=== PATIENT | female | born 1935 | race Caucasian/White ===

== ENCOUNTER 2017-02-01 16:28 | Emergency (ER) | payer MEDICARE ==
[2017-02-01] MEDS ORDERED: Morphine Sulfate 2 MG/ML SYRINGE ONE (17:03)
--- NOTE | 2017-02-01 19:33 | RAD ---
LEFT HUMERUS 02/01/17 Two views show a fracture of the surgical neck of the humerus. There is minimal displacement of the fracture. There is no dislocation of the humeral head. It is somewhat difficult for me to assess whe ther the lesser tubercle was involved medially or not. Dedicated shoulder films might be useful and/ or an MRI or CT. The adjacent AC joint shows no widening. IMPRESSION: Fracture of the surgical neck of the humerus. POS: HOME
--- NOTE | 2017-02-01 19:36 | RAD ---
PELVIS 02/01/17 A single view shows no obvious pelvic fracture. The hips appear intact and symmetrical. The pubic ri ngs appear intact and the symphysis shows no widening or off-set. There might have been some old tra araceli to the left pubic body. The SI joints are symmetrical. The hip joint spaces are equal in width. Arterial calcifications are evident. IMPRESSION: No acute findings. POS: HOME
--- NOTE | 2017-02-01 19:38 | RAD ---
PORTABLE CHEST 02/01/17 An AP portable film at 1657 is compared with an 04/20/16 study. Mild cardiomegaly is about the same a s before. There are no congestive changes or pleural effusions. No focal pulmonary infiltrates are s een. Calcification is seen in the aorta. The trachea is midline given the obliquity of the patient. The fracture of the left humeral neck is noted and is discussed more on other studies. No gross frac tures were seen. There is no mediastinal widening. IMPRESSION: Mild cardiomegaly and arterial sclerosis with no particular change since the [address] [facility]. POS: HOME
== END 2017-02-01 18:15 | disposition home or self-care (01) ==
LOC: BURERS 16:28
DX: S42.212A Unspecified displaced fracture of surgical neck of left humerus, initial encounter for closed fracture (principal); E11.9 Type 2 diabetes mellitus without complications; E78.5 Hyperlipidemia, unspecified; I10 Essential (primary) hypertension; Z86.73 Personal history of transient ischemic attack (TIA), and cerebral infarction without residual deficits; Z79.01 Long term (current) use of anticoagulants; Z79.899 Other long term (current) drug therapy; V89.2XXA Person injured in unspecified motor-vehicle accident, traffic, initial encounter
CPT/HCPCS: 71010; 72170; 93005; 96372; J2270

== ENCOUNTER 2017-02-13 14:05 | Outpatient (CLI) | payer MEDICARE ==
--- NOTE | 2017-02-13 21:46 | RAD ---
LEFT HIP TWO VIEWS: Date: 02-13-17 Comparison: Pelvis film of 02-01-17. FINDINGS: There is no clear indication of fracture. On one view there was a hint of irregularity of the superi or pubic ramus, but I could not definitely confirm a fracture here. Given the patient's osteopenia, one would probably need to do a CT to remove all doubts to exclude an occult superior ramus fracture . The proximal femur itself appears intact. I see nothing involving the inferior pubic ramus that wa s really suspicious. IMPRESSION: No definite fracture, however, on one view there was minimal cortical disturbance along the superior pubic ramus. If further studies are deemed necessary based on the symptoms, a CT would be preferred to remove any doubt. Code T POS: HOME
== END 2017-02-13 14:06 | disposition home or self-care (01) ==
LOC: BURRAD 14:05
PROVIDERS: ATTEND Family Medicine
DX: M25.552 Pain in left hip (principal)

== ENCOUNTER 2017-02-14 09:44 | Outpatient (CLI) | payer MEDICARE ==
--- NOTE | 2017-02-14 14:07 | CT ---
CT PELVIS WITHOUT CONTRAST 02/14/2017 HISTORY: A noncontrast CT was done due to questionable abnormalities on a recent plain film around the left h ip. Axial slices were acquired and then coronal and sagittal reconstructions were obtained. FINDINGS: The patient is very osteoporotic, making it difficult to see well. While the findings are subtle on the axial slices of the CT, there is a subtle nondisplaced fracture of the superior ramus of the le ft pubis, medially. There is no displacement. I could not appreciate fractures in any other surrou nding portions of the pelvis. The hips both appear intact. There is no sign of hematoma in the pel vis, pelvic masses, or fluid collection. IMPRESSION: Subtle, nondisplaced fracture of the superior ramus of the left pubis. Findings called to Dr. Guevara at 11:20 on 02/14/2017. CODE CR POS: HOME
== END 2017-02-14 09:45 | disposition home or self-care (01) ==
LOC: BURCT 09:44
PROVIDERS: ATTEND Family Medicine
DX: R93.8 Abnormal findings on diagnostic imaging of other specified body structures (principal); S32.512A Fracture of superior rim of left pubis, initial encounter for closed fracture
CPT/HCPCS: 72192

== ENCOUNTER 2017-03-15 09:55 | Outpatient (CLI) | payer MEDICARE ==
--- NOTE | 2017-03-15 19:53 | RAD ---
LEFT HUMERUS TWO VIEWS: 03/15/17 Comparison with last month's study shows callus forming around the humeral neck fracture. There is no adverse change in alignment. There is no dislocation of the humeral head. IMPRESSION: Healing humeral neck fracture. POS: HOME
== END 2017-03-15 09:56 | disposition home or self-care (01) ==
LOC: BURRAD 09:55
PROVIDERS: ATTEND Family Medicine
DX: Z09 Encounter for follow-up examination after completed treatment for conditions other than malignant neoplasm (principal); S42.212D Unspecified displaced fracture of surgical neck of left humerus, subsequent encounter for fracture with routine healing

== ENCOUNTER 2017-10-17 09:57 | Emergency (ER) | payer MEDICARE ==
[2017-10-17 10:41] LABS: #Basophils 0.1 thou/uL (0.0-0.2); #Eosinphils 0.3 thou/uL (0.0-0.7); #Lymphocytes 1.7 thou/uL (1.20-3.40); #Monocytes 0.5 thou/uL (0.11-0.59); #Neutrophils 2.7 thou/uL (1.40-6.50); %Basophils 1.3 % (0.0-1.0); %Eosinophils 5.2 % (0.0-10.0); %Lymphocytes 33.1 % (21.0-51.0); %Monocytes 9.8 % (0.0-10.0); %Neutrophils 50.6 % (42.0-75.0); Hemoglobin 11.9 g/dL (12.0-16.0); Mean Corpuscular HGB CONC 34.3 g/dL (32.0-36.0); Mean Corpuscular Hemoglobin 34.8 pg (27.0-31.0); Mean Platelet Volume 6.5 fL (7.4-10.4); Platelet Count 178 thou/uL (130-400); RBC Distribution Width 12.7 % (11.5-14.5); Red Blood Cell (RBC) Count 3.41 mill/uL (4.20-5.40); White Blood Cell (WBC) Count 5.3 thou/uL (4.8-10.8)
[2017-10-17 10:43] LABS: INR-International Normal Ratio 3.1; PTT 44.2 SEC (22.9-36.1); Prothrombin Time 33.2 SEC (12.0-14.7)
[2017-10-17 10:52] LABS: ALT (SGPT) 14 U/L (8-55); AST (SGOT) 19 U/L (5-34); Albumin 3.7 g/dL (3.4-4.8); Alkaline Phosphatase 51 U/L (40-150); Anion Gap 13 mmol/L (10-20); BUN (Urea Nitrogen) 16 mg/dL (9.8-20.1); Bilirubin, Total 0.5 mg/dL (0.2-1.2); Calc. Creatinine Clearance 0 mL/min (70-130); Calcium 9.3 mg/dL (7.8-10.44); Carbon Dioxide 27 mmol/L (23-31); Chloride 105 mmol/L (98-107); Estimated GFR-MDRD 62; Globulin 3.2 g/dL (2.4-3.5); Glucose 107 mg/dL (83-110); Protein, Total 6.9 g/dL (6.0-8.3); Sodium 141 mmol/L (136-145)
[2017-10-17 10:53] LABS: CKMB 1.2 ng/mL (0-6.6); Troponin I Less than 0.010 ng/mL (< 0.028)
[2017-10-17 11:02] LABS: MDiff Complete? YES; Macrocytosis SLIGHT = 6-15 cells (100X) (0-5/hpf); PLT Morphology Comment Appears Adequate
== END 2017-10-17 11:57 | disposition home or self-care (01) ==
LOC: BURERS 09:57
DX: R00.1 Bradycardia, unspecified (principal); E11.9 Type 2 diabetes mellitus without complications; E78.5 Hyperlipidemia, unspecified; I10 Essential (primary) hypertension; Z86.73 Personal history of transient ischemic attack (TIA), and cerebral infarction without residual deficits; Z79.891 Long term (current) use of opiate analgesic; Z79.899 Other long term (current) drug therapy
CPT/HCPCS: 36415; 80053; 82553; 83880; 84443; 84484; 85025; 85610; 85730; 93005

== ENCOUNTER 2018-04-07 16:18 | Emergency (ER) | payer MEDICARE ==
[2018-04-07 16:59] LABS: Clarity SLIGHTLY (Clear)
[2018-04-07 17:01] LABS: Bilirubin Small (Negative); Glucose, Urine (Dipstick) Negative (Negative); Leukocyte Negative (Negative); Nitrite Negative (Negative); Protein, Urine (Dipstick) Trace mg/dL (Neg-Trace); pH, Urine 5.5 (5.0-9.0)
[2018-04-07 17:02] LABS: Blood, Urine Negative (Negative)
[2018-04-07 17:36] LABS: INR-International Normal Ratio 3.6
--- NOTE | 2018-04-07 17:38 | CT ---
CT OF THE LUMBAR SPINE WITHOUT CONTRAST: 04/07/18 INDICATION: History of back pain since Monday. COMPARISON: CT of the abdomen and pelvis dated 04/20/[address] of the pelvis dated 02/14/17. FINDINGS: There is an age indeterminate mild superior end plate wedge compression abnormality of L2 which is ne w from the comparison in 2016. There is diffuse osteopenia. There is moderate degenerative changes of both SI joints. No additional acute fracture is evident. Vascular calcifications seen within the re troperitoneum. No enlarged lymph nodes are evident. IMPRESSION: 1. Age indeterminate mild superior end plate compression fracture at L2. This is new from compar [facility] in 2016. 2. Diffuse osteopenia. 3. Grade I anterolisthesis of L5 on S1 is likely degenerative in nature. 4. Other chronic findings. POS: [facility]
[2018-04-07 17:43] LABS: #Basophils 0.1 thou/uL (0.0-0.2); #Eosinphils 0.1 thou/uL (0.0-0.7); #Lymphocytes 1.7 thou/uL (1.20-3.40); #Monocytes 0.4 thou/uL (0.11-0.59); #Neutrophils 3.4 thou/uL (1.40-6.50); %Basophils 1.1 % (0.0-1.0); %Eosinophils 2.6 % (0.0-10.0); %Lymphocytes 29.5 % (21.0-51.0); %Monocytes 7.7 % (0.0-10.0); %Neutrophils 59.2 % (42.0-75.0); Hemoglobin 10.6 g/dL (12.0-16.0); MDiff Complete? YES; Macrocytosis SLIGHT = 6-15 cells (100X) (0-5/hpf); Mean Corpuscular HGB CONC 34.2 g/dL (32.0-36.0); Mean Corpuscular Hemoglobin 35.3 pg (27.0-31.0); Mean Platelet Volume 7.4 fL (7.4-10.4); Platelet Count 177 thou/uL (130-400); RBC Distribution Width 13.3 % (11.5-14.5); White Blood Cell (WBC) Count 5.7 thou/uL (4.8-10.8)
== END 2018-04-07 18:21 | disposition short-term general hospital (02) ==
LOC: BURERS 16:18
DX: M54.5 Low back pain (principal); R70.0 Elevated erythrocyte sedimentation rate; E11.9 Type 2 diabetes mellitus without complications; E78.5 Hyperlipidemia, unspecified; I10 Essential (primary) hypertension; Z86.73 Personal history of transient ischemic attack (TIA), and cerebral infarction without residual deficits; Z87.442 Personal history of urinary calculi; Z79.01 Long term (current) use of anticoagulants; Z79.899 Other long term (current) drug therapy
CPT/HCPCS: 51701; 72131; 81003; 85025; 85610; 85652; A4353

== ENCOUNTER 2018-04-10 17:52 | Inpatient (IN) | payer MEDICARE ==
[2018-04-10] MEDS ORDERED: Ondansetron PF 4 MG/2 ML Vial IVP PRN (20:39)
[2018-04-10] MEDS ORDERED: Ondansetron ODT 4 MG TAB SL PRN (20:39)
[2018-04-11] MEDS ORDERED: Morphine 4 MG/ML VIAL ONE (02:27)
[2018-04-11] MEDS ORDERED: Loperamide HCl 2 MG CAP PO PRN (08:18)
[2018-04-11] MEDS ORDERED: HumaLOG 300 UNITS/3 ML VIAL SC PRN ×2 (08:19)
[2018-04-11] MEDS ORDERED: Dextrose 50% Abboject 50 ML SYRINGE SLOW IVP PRN (08:19)
[2018-04-11] MEDS ORDERED: Dextrose 5% in Water 1,000 ML IV PRN (08:19)
[2018-04-11] MEDS ORDERED: Meclizine HCl 25 MG TAB PO PRN (08:19)
[2018-04-11] MEDS ORDERED: cloNIDine 0.1 MG TAB PO PRN (08:21)
[2018-04-11] MEDS ORDERED: Bisacodyl 10 MG SUPP PR PRN (08:21)
[2018-04-11] MEDS ORDERED: Ondansetron ODT 4 MG TAB PO PRN (08:21)
[2018-04-11] MEDS ORDERED: Milk Of Magnesia 30 ML UDCUP PO PRN (08:21)
[2018-04-11] MEDS ORDERED: Famotidine 20 MG TAB PO PRN (08:21)
[2018-04-11] MEDS ORDERED: Calcitonin,Salmon,Synthetic 200 Units 3.7 ML PUMP L NARE SCH ×2 (08:30→10:15)
[2018-04-11] MEDS: Pioglitazone HCl 15 MG TAB PO SCH (09:32)
[2018-04-11] MEDS: Lisinopril 10 MG TAB PO SCH (09:32)
[2018-04-11] MEDS: Amlodipine 5 MG TAB PO SCH (09:33)
[2018-04-11] MEDS: Famotidine 20 MG TAB PO SCH ×2 (09:34→21:25)
[2018-04-11] MEDS: Docusate 100 MG CAP PO SCH ×2 (09:34→21:26)
[2018-04-11] MEDS: metFORMIN 500 MG TAB PO SCH (09:35)
[2018-04-11] MEDS: Calcitonin,Salmon,Synthetic 200 Units 3.7 ML PUMP R NARE SCH (09:38)
[2018-04-11] MEDS ORDERED: WARFARIN PO PRN (10:15)
[2018-04-11 13:48] LABS: INR-International Normal Ratio 1.2
[2018-04-11] MEDS: 4 PO SCH (17:18)
[2018-04-11] MEDS: Atorvastatin Calcium 10 MG TAB PO SCH (21:26)
[2018-04-11] MEDS: traMADol HCl 50 MG TAB PO PRN (23:25)
[2018-04-12 04:29] VITALS: BMI 30.2
[2018-04-12 05:33] LABS: INR-International Normal Ratio 1.2; Prothrombin Time 15.5 SEC (12.0-14.7)
[2018-04-12] MEDS: Calcitonin,Salmon,Synthetic 200 Units 3.7 ML PUMP L NARE SCH (08:54)
[2018-04-12] MEDS: Docusate 100 MG CAP PO SCH ×2 (08:55→20:45)
[2018-04-12] MEDS: Amlodipine 5 MG TAB PO SCH (08:56)
[2018-04-12] MEDS: Lisinopril 10 MG TAB PO SCH (08:56)
[2018-04-12] MEDS: Pioglitazone HCl 15 MG TAB PO SCH (08:56)
[2018-04-12] MEDS: metFORMIN 500 MG TAB PO SCH (08:56)
[2018-04-12] MEDS: Famotidine 20 MG TAB PO SCH ×2 (08:56→20:45)
[2018-04-12] MEDS: traMADol HCl 50 MG TAB PO PRN (15:07)
[2018-04-12] MEDS: 4 PO SCH (16:46)
[2018-04-12] MEDS: Atorvastatin Calcium 10 MG TAB PO SCH (20:45)
[2018-04-12] MEDS: Acetaminophen 325 MG TAB PO PRN (22:25)
[2018-04-13] MEDS: traMADol HCl 50 MG TAB PO PRN (05:07)
[2018-04-13 05:34] LABS: INR-International Normal Ratio 1.2; Prothrombin Time 15.4 SEC (12.0-14.7)
[2018-04-13] MEDS: Calcitonin,Salmon,Synthetic 200 Units 3.7 ML PUMP R NARE SCH (08:26)
[2018-04-13] MEDS: metFORMIN 500 MG TAB PO SCH (08:26)
[2018-04-13] MEDS: Lisinopril 10 MG TAB PO SCH (08:27)
[2018-04-13] MEDS: Famotidine 20 MG TAB PO SCH ×2 (08:27→20:05)
[2018-04-13] MEDS: Docusate 100 MG CAP PO SCH ×2 (08:28→20:05)
[2018-04-13] MEDS: Pioglitazone HCl 15 MG TAB PO SCH (08:28)
[2018-04-13] MEDS: Amlodipine 5 MG TAB PO SCH (08:29)
[2018-04-13] MEDS: Warfarin Sodium 5 MG TAB PO SCH (17:21)
[2018-04-13] MEDS: Acetaminophen 325 MG TAB PO PRN (20:05)
[2018-04-13] MEDS: Atorvastatin Calcium 10 MG TAB PO SCH (20:05)
[2018-04-14 05:56] LABS: INR-International Normal Ratio 1.6; Prothrombin Time 18.8 SEC (12.0-14.7)
[2018-04-14] MEDS: traMADol HCl 50 MG TAB PO PRN ×2 (06:17→16:45)
[2018-04-14] MEDS: Famotidine 20 MG TAB PO SCH ×2 (08:44→20:40)
[2018-04-14] MEDS: Docusate 100 MG CAP PO SCH ×2 (08:44→20:40)
[2018-04-14] MEDS: metFORMIN 500 MG TAB PO SCH (08:44)
[2018-04-14] MEDS: Pioglitazone HCl 15 MG TAB PO SCH (08:44)
[2018-04-14] MEDS: Amlodipine 5 MG TAB PO SCH (08:46)
[2018-04-14] MEDS: Lisinopril 10 MG TAB PO SCH (08:48)
[2018-04-14] MEDS: Calcitonin,Salmon,Synthetic 200 Units 3.7 ML PUMP L NARE SCH (08:50)
[2018-04-14] MEDS: Warfarin Sodium 5 MG TAB PO SCH (17:12)
[2018-04-14] MEDS: Atorvastatin Calcium 10 MG TAB PO SCH (20:40)
[2018-04-14] MEDS: Acetaminophen 325 MG TAB PO PRN (20:40)
[2018-04-15] MEDS: traMADol HCl 50 MG TAB PO PRN ×2 (04:23→22:50)
[2018-04-15 05:28] LABS: INR-International Normal Ratio 1.9
[2018-04-15] MEDS: Famotidine 20 MG TAB PO SCH ×2 (08:24→20:30)
[2018-04-15] MEDS: Docusate 100 MG CAP PO SCH ×3 (08:24→20:33)
[2018-04-15] MEDS: metFORMIN 500 MG TAB PO SCH (08:25)
[2018-04-15] MEDS: Amlodipine 5 MG TAB PO SCH (08:25)
[2018-04-15] MEDS: Lisinopril 20 MG TAB PO SCH (08:25)
[2018-04-15] MEDS: Pioglitazone HCl 15 MG TAB PO SCH (08:26)
[2018-04-15] MEDS: Calcitonin,Salmon,Synthetic 200 Units 3.7 ML PUMP R NARE SCH (08:27)
[2018-04-15] MEDS: Warfarin Sodium 5 MG TAB PO SCH (17:28)
[2018-04-15] MEDS: Acetaminophen 325 MG TAB PO PRN (20:29)
[2018-04-15] MEDS: Atorvastatin Calcium 10 MG TAB PO SCH (20:30)
[2018-04-15] MEDS ORDERED: Lidocaine 1% w/Epinephrine 1:100K 30 ML VIAL ONE (20:44)
[2018-04-16 05:27] LABS: INR-International Normal Ratio 2.1; Prothrombin Time 23.8 SEC (12.0-14.7)
[2018-04-16] MEDS: traMADol HCl 50 MG TAB PO PRN ×2 (05:59→13:33)
[2018-04-16] MEDS: Pioglitazone HCl 15 MG TAB PO SCH (08:19)
[2018-04-16] MEDS: Docusate 100 MG CAP PO SCH ×2 (08:20→20:39)
[2018-04-16] MEDS: metFORMIN 500 MG TAB PO SCH (08:20)
[2018-04-16] MEDS: Famotidine 20 MG TAB PO SCH ×2 (08:20→20:39)
[2018-04-16] MEDS: Lisinopril 20 MG TAB PO SCH (08:20)
[2018-04-16] MEDS: Amlodipine 5 MG TAB PO SCH (08:20)
[2018-04-16] MEDS: Calcitonin,Salmon,Synthetic 200 Units 3.7 ML PUMP L NARE SCH (08:22)
[2018-04-16] MEDS: Warfarin Sodium 5 MG TAB PO SCH (17:12)
[2018-04-16] MEDS: Atorvastatin Calcium 10 MG TAB PO SCH (20:39)
[2018-04-16] MEDS: Acetaminophen 325 MG TAB PO PRN (20:40)
[2018-04-17] MEDS: traMADol HCl 50 MG TAB PO PRN (04:04)
[2018-04-17 05:22] LABS: INR-International Normal Ratio 2.4; Prothrombin Time 25.8 SEC (12.0-14.7)
[2018-04-17] MEDS: Famotidine 20 MG TAB PO SCH ×2 (08:08→20:11)
[2018-04-17] MEDS: Amlodipine 5 MG TAB PO SCH (08:09)
[2018-04-17] MEDS: Pioglitazone HCl 15 MG TAB PO SCH (08:09)
[2018-04-17] MEDS: metFORMIN 500 MG TAB PO SCH (08:09)
[2018-04-17] MEDS: Docusate 100 MG CAP PO SCH ×2 (08:09→20:11)
[2018-04-17] MEDS: Calcitonin,Salmon,Synthetic 200 Units 3.7 ML PUMP R NARE SCH (08:11)
[2018-04-17] MEDS: Lisinopril 20 MG TAB PO SCH (08:11)
[2018-04-17] MEDS ORDERED: Iopamidol 370 76% 100 ML VIAL ONE ×2 (09:00)
[2018-04-17] MEDS: Warfarin Sodium 5 MG TAB PO SCH (17:53)
[2018-04-17] MEDS: Atorvastatin Calcium 10 MG TAB PO SCH (20:11)
[2018-04-17] MEDS: Acetaminophen 325 MG TAB PO PRN (22:12)
[2018-04-18] MEDS: traMADol HCl 50 MG TAB PO PRN (04:59)
[2018-04-18 06:11] LABS: INR-International Normal Ratio 2.7; Prothrombin Time 28.5 SEC (12.0-14.7)
[2018-04-18] MEDS: Lisinopril 20 MG TAB PO SCH (08:31)
[2018-04-18] MEDS: Pioglitazone HCl 15 MG TAB PO SCH (08:32)
[2018-04-18] MEDS: metFORMIN 500 MG TAB PO SCH (08:32)
[2018-04-18] MEDS: Docusate 100 MG CAP PO SCH ×2 (08:32→20:18)
[2018-04-18] MEDS: Famotidine 20 MG TAB PO SCH ×2 (08:33→20:18)
[2018-04-18] MEDS: Amlodipine 5 MG TAB PO SCH (08:33)
[2018-04-18] MEDS: Calcitonin,Salmon,Synthetic 200 Units 3.7 ML PUMP L NARE SCH (08:35)
[2018-04-18] MEDS: Warfarin Sodium 5 MG TAB PO SCH (16:48)
[2018-04-18] MEDS: Acetaminophen 325 MG TAB PO PRN (20:18)
[2018-04-18] MEDS: Atorvastatin Calcium 10 MG TAB PO SCH (20:18)
[2018-04-19] MEDS: traMADol HCl 50 MG TAB PO PRN (05:19)
[2018-04-19 05:42] LABS: INR-International Normal Ratio 2.8; Prothrombin Time 29.1 SEC (12.0-14.7)
[2018-04-19] MEDS: Famotidine 20 MG TAB PO SCH ×2 (08:37→20:30)
[2018-04-19] MEDS: Pioglitazone HCl 15 MG TAB PO SCH (08:37)
[2018-04-19] MEDS: Amlodipine 5 MG TAB PO SCH (08:37)
[2018-04-19] MEDS: metFORMIN 500 MG TAB PO SCH (08:38)
[2018-04-19] MEDS: Hydrochlorothiazide 25 MG TAB PO SCH (08:38)
[2018-04-19] MEDS: Lisinopril 20 MG TAB PO SCH (08:38)
[2018-04-19] MEDS: Docusate 100 MG CAP PO SCH ×2 (08:39→20:31)
[2018-04-19] MEDS: Calcitonin,Salmon,Synthetic 200 Units 3.7 ML PUMP R NARE SCH (08:44)
[2018-04-19] MEDS: Warfarin Sodium 5 MG TAB PO SCH (17:50)
[2018-04-19] MEDS: Atorvastatin Calcium 10 MG TAB PO SCH (20:32)
[2018-04-19] MEDS: Acetaminophen 325 MG TAB PO PRN (20:32)
[2018-04-20 05:18] LABS: INR-International Normal Ratio 3.5; Prothrombin Time 35.1 SEC (12.0-14.7)
[2018-04-20] MEDS: traMADol HCl 50 MG TAB PO PRN (07:28)
[2018-04-20] MEDS: Amlodipine 5 MG TAB PO SCH (08:20)
[2018-04-20] MEDS: Pioglitazone HCl 15 MG TAB PO SCH (08:21)
[2018-04-20] MEDS: Lisinopril 20 MG TAB PO SCH (08:21)
[2018-04-20] MEDS: Famotidine 20 MG TAB PO SCH ×2 (08:21→19:58)
[2018-04-20] MEDS: metFORMIN 500 MG TAB PO SCH (08:21)
[2018-04-20] MEDS: Docusate 100 MG CAP PO SCH ×2 (08:21→19:58)
[2018-04-20] MEDS: Hydrochlorothiazide 25 MG TAB PO SCH (08:22)
[2018-04-20] MEDS: Calcitonin,Salmon,Synthetic 200 Units 3.7 ML PUMP L NARE SCH (08:23)
[2018-04-20] MEDS: Acetaminophen 325 MG TAB PO PRN (19:57)
[2018-04-20] MEDS: Atorvastatin Calcium 10 MG TAB PO SCH (19:58)
[2018-04-21 05:18] LABS: INR-International Normal Ratio 2.9; Prothrombin Time 30.1 SEC (12.0-14.7)
[2018-04-21] MEDS: traMADol HCl 50 MG TAB PO PRN (05:33)
[2018-04-21] MEDS: Hydrochlorothiazide 25 MG TAB PO SCH (08:19)
[2018-04-21] MEDS: Docusate 100 MG CAP PO SCH ×2 (08:19→20:04)
[2018-04-21] MEDS: Lisinopril 20 MG TAB PO SCH (08:20)
[2018-04-21] MEDS: Pioglitazone HCl 15 MG TAB PO SCH (08:20)
[2018-04-21] MEDS: Famotidine 20 MG TAB PO SCH ×2 (08:20→20:05)
[2018-04-21] MEDS: metFORMIN 500 MG TAB PO SCH (08:20)
[2018-04-21] MEDS: Amlodipine 5 MG TAB PO SCH (08:22)
[2018-04-21] MEDS: Calcitonin,Salmon,Synthetic 200 Units 3.7 ML PUMP R NARE SCH (08:23)
[2018-04-21] MEDS: Warfarin Sodium 2 MG TAB PO SCH (17:28)
[2018-04-21] MEDS: Atorvastatin Calcium 10 MG TAB PO SCH (20:04)
[2018-04-21] MEDS: Acetaminophen 325 MG TAB PO PRN (20:05)
[2018-04-22] MEDS: traMADol HCl 50 MG TAB PO PRN (05:56)
[2018-04-22 06:02] LABS: INR-International Normal Ratio 2.4; Prothrombin Time 26.4 SEC (12.0-14.7)
[2018-04-22] MEDS: Amlodipine 5 MG TAB PO SCH (08:35)
[2018-04-22] MEDS: Calcitonin,Salmon,Synthetic 200 Units 3.7 ML PUMP L NARE SCH (08:35)
[2018-04-22] MEDS: Docusate 100 MG CAP PO SCH ×2 (08:35→20:08)
[2018-04-22] MEDS: Lisinopril 20 MG TAB PO SCH (08:36)
[2018-04-22] MEDS: Hydrochlorothiazide 25 MG TAB PO SCH (08:36)
[2018-04-22] MEDS: metFORMIN 500 MG TAB PO SCH (08:36)
[2018-04-22] MEDS: Famotidine 20 MG TAB PO SCH ×2 (08:36→20:08)
[2018-04-22] MEDS: Pioglitazone HCl 15 MG TAB PO SCH (08:36)
[2018-04-22] MEDS: Warfarin Sodium 2 MG TAB PO SCH (17:54)
[2018-04-22] MEDS: Atorvastatin Calcium 10 MG TAB PO SCH (20:08)
[2018-04-22] MEDS: Acetaminophen 325 MG TAB PO PRN (20:08)
[2018-04-23 05:00] LABS: INR-International Normal Ratio 2.2; Prothrombin Time 24.2 SEC (12.0-14.7)
[2018-04-23] MEDS: traMADol HCl 50 MG TAB PO PRN ×2 (06:08→17:34)
[2018-04-23] MEDS: Lisinopril 20 MG TAB PO SCH (08:21)
[2018-04-23] MEDS: Hydrochlorothiazide 25 MG TAB PO SCH (08:21)
[2018-04-23] MEDS: Famotidine 20 MG TAB PO SCH ×2 (08:22→20:11)
[2018-04-23] MEDS: Amlodipine 5 MG TAB PO SCH (08:22)
[2018-04-23] MEDS: Docusate 100 MG CAP PO SCH ×2 (08:22→20:11)
[2018-04-23] MEDS: Pioglitazone HCl 15 MG TAB PO SCH (08:22)
[2018-04-23] MEDS: metFORMIN 500 MG TAB PO SCH (08:22)
[2018-04-23] MEDS: Calcitonin,Salmon,Synthetic 200 Units 3.7 ML PUMP R NARE SCH (08:23)
[2018-04-23] MEDS ORDERED: Warfarin Sodium 5 MG TAB PO SCH (09:25)
[2018-04-23] MEDS: Warfarin Sodium 5 MG TAB PO SCH (17:06)
[2018-04-23] MEDS: Atorvastatin Calcium 10 MG TAB PO SCH (20:11)
[2018-04-24 05:05] LABS: Prothrombin Time 25.6 SEC (12.0-14.7)
[2018-04-24 05:06] LABS: INR-International Normal Ratio 2.3
[2018-04-24] MEDS: traMADol HCl 50 MG TAB PO PRN (05:40)
[2018-04-24] MEDS: metFORMIN 500 MG TAB PO SCH (08:58)
[2018-04-24] MEDS: Famotidine 20 MG TAB PO SCH ×2 (08:58→20:10)
[2018-04-24] MEDS: Docusate 100 MG CAP PO SCH ×2 (08:58→20:10)
[2018-04-24] MEDS: Pioglitazone HCl 15 MG TAB PO SCH (08:58)
[2018-04-24] MEDS: Calcitonin,Salmon,Synthetic 200 Units 3.7 ML PUMP L NARE SCH (08:58)
[2018-04-24] MEDS: Hydrochlorothiazide 25 MG TAB PO SCH (08:59)
[2018-04-24] MEDS: Amlodipine 5 MG TAB PO SCH (08:59)
[2018-04-24] MEDS: Lisinopril 20 MG TAB PO SCH (09:01)
[2018-04-24] MEDS: Warfarin Sodium 5 MG TAB PO SCH (16:56)
[2018-04-24] MEDS: Acetaminophen 325 MG TAB PO PRN (20:10)
[2018-04-24] MEDS: Atorvastatin Calcium 10 MG TAB PO SCH (20:15)
[2018-04-25 06:12] LABS: INR-International Normal Ratio 2.4; Prothrombin Time 26.1 SEC (12.0-14.7)
[2018-04-25] MEDS: traMADol HCl 50 MG TAB PO PRN (06:15)
[2018-04-25] MEDS: Amlodipine 5 MG TAB PO SCH (08:14)
[2018-04-25] MEDS: Pioglitazone HCl 15 MG TAB PO SCH (08:14)
[2018-04-25] MEDS: metFORMIN 500 MG TAB PO SCH (08:15)
[2018-04-25] MEDS: Lisinopril 20 MG TAB PO SCH (08:15)
[2018-04-25] MEDS: Famotidine 20 MG TAB PO SCH ×2 (08:16→20:02)
[2018-04-25] MEDS: Hydrochlorothiazide 25 MG TAB PO SCH (08:16)
[2018-04-25] MEDS: Docusate 100 MG CAP PO SCH ×2 (08:16→20:02)
[2018-04-25] MEDS: Calcitonin,Salmon,Synthetic 200 Units 3.7 ML PUMP R NARE SCH (08:17)
[2018-04-25] MEDS: Warfarin Sodium 5 MG TAB PO SCH (17:09)
[2018-04-25] MEDS: Atorvastatin Calcium 10 MG TAB PO SCH (20:02)
[2018-04-25] MEDS: Acetaminophen 325 MG TAB PO PRN (20:03)
[2018-04-26] MEDS: traMADol HCl 50 MG TAB PO PRN ×2 (06:57→21:44)
[2018-04-26] MEDS: Docusate 100 MG CAP PO SCH ×2 (08:30→19:36)
[2018-04-26] MEDS: Pioglitazone HCl 15 MG TAB PO SCH (08:30)
[2018-04-26] MEDS: Famotidine 20 MG TAB PO SCH ×2 (08:33→19:33)
[2018-04-26] MEDS: Amlodipine 5 MG TAB PO SCH (08:34)
[2018-04-26] MEDS: metFORMIN 500 MG TAB PO SCH (08:34)
[2018-04-26] MEDS: Hydrochlorothiazide 25 MG TAB PO SCH (08:34)
[2018-04-26] MEDS: Lisinopril 20 MG TAB PO SCH (08:34)
[2018-04-26] MEDS: Calcitonin,Salmon,Synthetic 200 Units 3.7 ML PUMP L NARE SCH (08:36)
[2018-04-26] MEDS ORDERED: Warfarin Sodium 2 MG TAB PO SCH (14:02)
[2018-04-26] MEDS: Acetaminophen 325 MG TAB PO PRN ×2 (19:33→23:50)
[2018-04-26] MEDS: Atorvastatin Calcium 10 MG TAB PO SCH (19:35)
[2018-04-27 05:25] LABS: Prothrombin Time 31.3 SEC (12.0-14.7)
[2018-04-27] MEDS: traMADol HCl 50 MG TAB PO PRN (06:34)
[2018-04-27] MEDS: Calcitonin,Salmon,Synthetic 200 Units 3.7 ML PUMP R NARE SCH (07:57)
[2018-04-27] MEDS: Lisinopril 20 MG TAB PO SCH (07:58)
[2018-04-27] MEDS: Pioglitazone HCl 15 MG TAB PO SCH (07:59)
[2018-04-27] MEDS: Famotidine 20 MG TAB PO SCH ×2 (07:59→20:48)
[2018-04-27] MEDS: metFORMIN 500 MG TAB PO SCH (08:00)
[2018-04-27] MEDS: Amlodipine 5 MG TAB PO SCH (08:01)
[2018-04-27] MEDS: Hydrochlorothiazide 25 MG TAB PO SCH (08:02)
[2018-04-27] MEDS: Docusate 100 MG CAP PO SCH ×2 (08:02→20:48)
[2018-04-27] MEDS ORDERED: Warfarin Sodium 2 MG TAB PO SCH (17:00)
[2018-04-27] MEDS: Atorvastatin Calcium 10 MG TAB PO SCH (20:48)
[2018-04-27] MEDS: Acetaminophen 325 MG TAB PO PRN (20:53)
[2018-04-28 05:44] LABS: INR-International Normal Ratio 2.3
[2018-04-28] MEDS: traMADol HCl 50 MG TAB PO PRN (07:11)
[2018-04-28] MEDS: Amlodipine 5 MG TAB PO SCH (09:17)
[2018-04-28] MEDS: Docusate 100 MG CAP PO SCH ×2 (09:17→20:11)
[2018-04-28] MEDS: Hydrochlorothiazide 25 MG TAB PO SCH (09:17)
[2018-04-28] MEDS: Pioglitazone HCl 15 MG TAB PO SCH (09:18)
[2018-04-28] MEDS: Calcitonin,Salmon,Synthetic 200 Units 3.7 ML PUMP L NARE SCH (09:18)
[2018-04-28] MEDS: Famotidine 20 MG TAB PO SCH ×2 (09:18→20:11)
[2018-04-28] MEDS: Lisinopril 20 MG TAB PO SCH (09:18)
[2018-04-28] MEDS: metFORMIN 500 MG TAB PO SCH (09:18)
[2018-04-28] MEDS: Acetaminophen 325 MG TAB PO PRN ×2 (12:20→19:14)
[2018-04-28] MEDS ORDERED: Warfarin Sodium 2 MG TAB PO SCH (17:00)
[2018-04-28] MEDS: Atorvastatin Calcium 10 MG TAB PO SCH (20:11)
[2018-04-29 05:24] LABS: INR-International Normal Ratio 1.6; Prothrombin Time 19.5 SEC (12.0-14.7)
[2018-04-29] MEDS: traMADol HCl 50 MG TAB PO PRN (07:11)
[2018-04-29] MEDS: Pioglitazone HCl 15 MG TAB PO SCH (09:32)
[2018-04-29] MEDS: metFORMIN 500 MG TAB PO SCH (09:32)
[2018-04-29] MEDS: Amlodipine 5 MG TAB PO SCH (09:32)
[2018-04-29] MEDS: Docusate 100 MG CAP PO SCH ×2 (09:32→20:47)
[2018-04-29] MEDS: Famotidine 20 MG TAB PO SCH ×2 (09:32→20:47)
[2018-04-29] MEDS: Hydrochlorothiazide 25 MG TAB PO SCH (09:33)
[2018-04-29] MEDS: Lisinopril 20 MG TAB PO SCH (09:33)
[2018-04-29] MEDS: Calcitonin,Salmon,Synthetic 200 Units 3.7 ML PUMP R NARE SCH (09:50)
[2018-04-29] MEDS ORDERED: Warfarin Sodium 5 MG TAB PO SCH (17:00)
[2018-04-29] MEDS: Acetaminophen 325 MG TAB PO PRN (20:47)
[2018-04-29] MEDS: Atorvastatin Calcium 10 MG TAB PO SCH (20:47)
[2018-04-30 05:24] LABS: INR-International Normal Ratio 1.7; Prothrombin Time 20.3 SEC (12.0-14.7)
[2018-04-30] MEDS: traMADol HCl 50 MG TAB PO PRN ×2 (05:34→15:23)
[2018-04-30] MEDS: Amlodipine 5 MG TAB PO SCH (08:47)
[2018-04-30] MEDS: Lisinopril 20 MG TAB PO SCH (08:47)
[2018-04-30] MEDS: Pioglitazone HCl 15 MG TAB PO SCH (08:47)
[2018-04-30] MEDS: Famotidine 20 MG TAB PO SCH ×2 (08:47→20:06)
[2018-04-30] MEDS: Hydrochlorothiazide 25 MG TAB PO SCH (08:48)
[2018-04-30] MEDS: metFORMIN 500 MG TAB PO SCH (08:49)
[2018-04-30] MEDS: Calcitonin,Salmon,Synthetic 200 Units 3.7 ML PUMP R NARE SCH (08:49)
[2018-04-30] MEDS: Docusate 100 MG CAP PO SCH ×2 (08:52→20:06)
[2018-04-30] MEDS: Calcitonin,Salmon,Synthetic 200 Units 3.7 ML PUMP L NARE SCH (10:09)
[2018-04-30] MEDS: Warfarin Sodium 2 MG TAB PO SCH (14:50)
[2018-04-30] MEDS: Acetaminophen 325 MG TAB PO PRN (20:06)
[2018-04-30] MEDS: Atorvastatin Calcium 10 MG TAB PO SCH (20:06)
[2018-05-01 05:38] LABS: INR-International Normal Ratio 2.1; Prothrombin Time 23.2 SEC (12.0-14.7)
[2018-05-01 06:33] VITALS: TEMP 98.2
[2018-05-01] MEDS: Acetaminophen 325 MG TAB PO PRN (07:09)
[2018-05-01] MEDS: Calcitonin,Salmon,Synthetic 200 Units 3.7 ML PUMP R NARE SCH ×2 (08:22→08:24)
[2018-05-01] MEDS: Pioglitazone HCl 15 MG TAB PO SCH (08:22)
[2018-05-01] MEDS: Famotidine 20 MG TAB PO SCH (08:22)
[2018-05-01] MEDS: Hydrochlorothiazide 25 MG TAB PO SCH (08:23)
[2018-05-01] MEDS: Lisinopril 20 MG TAB PO SCH (08:23)
[2018-05-01] MEDS: Amlodipine 5 MG TAB PO SCH (08:23)
[2018-05-01] MEDS: metFORMIN 500 MG TAB PO SCH (08:23)
[2018-05-01] MEDS: Docusate 100 MG CAP PO SCH (08:23)
[2018-05-01 08:24] VITALS: BP 137/58
[2018-05-01] MEDS: Warfarin Sodium 2 MG TAB PO SCH (13:39)
== END 2018-05-01 15:47 | disposition home or self-care (01) | DRG 544 ==
LOC: BURERS 17:52 → BURMED 18:45 → UNDOADMIN 19:17
PROVIDERS: ADMIT Family Medicine; ATTEND Family Medicine
DX: M48.56XA Collapsed vertebra, not elsewhere classified, lumbar region, initial encounter for fracture (principal); Z86.73 Personal history of transient ischemic attack (TIA), and cerebral infarction without residual deficits; M54.9 Dorsalgia, unspecified; E11.9 Type 2 diabetes mellitus without complications; E78.5 Hyperlipidemia, unspecified; I48.91 Unspecified atrial fibrillation; Z66 Do not resuscitate; Z91.81 History of falling; Z79.01 Long term (current) use of anticoagulants; Z87.442 Personal history of urinary calculi; M81.0 Age-related osteoporosis without current pathological fracture
CPT/HCPCS: 36415; 36416; 85610; 99285; G8978-GP-CJ; G8979-GP-CI; G8987-GO-CJ; G8987-GO-CK; G8988-GO-CI; J2001; J2270; J7620

== ENCOUNTER 2018-05-26 12:28 | Inpatient (IN) | payer MEDICARE ==
--- NOTE | 2018-05-26 15:05 | CT ---
CT LUMBAR SPINE: DATE: 05/26/2018. FINDINGS: Comparison is made with the prior study of 04/07/2018. The known L2 compression fracture has compressed further in this short interval. This particularly i nvolves the superior end plate. There is slight retropulsion of the posterior margin without severe spinal stenosis at that level. No acute findings. L3-L4: There is mild concentric bulging of th disk and facet and ligamentous hypertrophy. This resu lts in a mild degree of effacement of the thecal sac. L4-L5: There is a very large concentric disk bulge with facet and ligamentous hypertrophy. This res ults in a moderate degree of central canal stenosis. It does not seem markedly different than the pr ior study. L5-S1: There is grade I spondylolisthesis of L5 on S1 that appears to be due to facet arthritic graham ges. The bulge of the disk may just touch the exiting L5 roots, but the appearance has not changed s ignificantly in the interval. The visible portions of the SI joints were unremarkable. IMPRESSION: 1. L2 compression fracture has worsened slightly since the March scan. 2. Minimal central canal stenosis at L3-L4 and moderate at L4-L5. This is similar to before. 3. Mild spondylolisthesis of L5 on S1, unchanged. POS: HOME
[2018-05-26] MEDS: Ondansetron ODT 4 MG TAB PO PRN (16:48)
[2018-05-26] MEDS ORDERED: Acetaminophen 325 MG TAB PO PRN (16:51)
[2018-05-26] MEDS ORDERED: HumaLOG 300 UNITS/3 ML VIAL SC PRN ×2 (16:53)
[2018-05-26] MEDS ORDERED: Dextrose 5% in Water 1,000 ML IV PRN (16:53)
[2018-05-26] MEDS ORDERED: Dextrose 50% Abboject 50 ML SYRINGE SLOW IVP PRN (16:53)
[2018-05-26] MEDS ORDERED: Milk Of Magnesia 30 ML UDCUP PO PRN (16:56)
[2018-05-26] MEDS ORDERED: Bisacodyl 10 MG SUPP PR PRN (16:56)
[2018-05-26] MEDS ORDERED: Warfarin Sodium 5 MG TAB PO SCH (17:00)
[2018-05-26] MEDS ORDERED: Meclizine HCl 25 MG TAB PO PRN (17:08)
[2018-05-26] MEDS ORDERED: Loperamide HCl 2 MG CAP PO PRN (17:08)
[2018-05-26 18:23] LABS: INR-International Normal Ratio 3.1
[2018-05-26 18:29] LABS: Hemoglobin 11.2 g/dL (12.0-16.0); Mean Corpuscular HGB CONC 35.8 g/dL (32.0-36.0); Mean Corpuscular Hemoglobin 36.2 pg (27.0-31.0); Mean Platelet Volume 6.4 fL (7.4-10.4); Platelet Count 152 thou/uL (130-400); RBC Distribution Width 12.9 % (11.5-14.5); White Blood Cell (WBC) Count 6.3 thou/uL (4.8-10.8)
[2018-05-26 18:31] LABS: ALT (SGPT) 12 U/L (8-55); AST (SGOT) 17 U/L (5-34); Albumin 3.7 g/dL (3.4-4.8); Alkaline Phosphatase 63 U/L (40-150); Anion Gap 13 mmol/L (10-20); BUN (Urea Nitrogen) 27 mg/dL (9.8-20.1); Bilirubin, Total 0.5 mg/dL (0.2-1.2); Calc. Creatinine Clearance 63 mL/min (70-130); Calcium 9.3 mg/dL (7.8-10.44); Carbon Dioxide 25 mmol/L (23-31); Chloride 106 mmol/L (98-107); Estimated GFR-MDRD 61; Glucose 139 mg/dL (83-110); Potassium 4.3 mmol/L (3.5-5.1); Protein, Total 6.7 g/dL (6.0-8.3); Sodium 140 mmol/L (136-145)
[2018-05-26 18:37] LABS: Bilirubin Negative (Negative); Blood, Urine Negative (Negative); Clarity Clear (Clear); Glucose, Urine (Dipstick) Negative (Negative); Leukocyte Negative (Negative); Nitrite Negative (Negative); Protein, Urine (Dipstick) Negative (Neg-Trace); Specific Gravity, Urine 1.025 (1.005-1.030); pH, Urine 6.5 (5.0-9.0)
[2018-05-26 18:44] LABS: Hyaline Casts/LPF 0-3 HYALINE CAST LPF (0-3 Hyaline); Other Microscopic Description 1+ MUCUS; RBC/HPF 0-3 HPF (0-3); Squamous Epithelial 0-3 HPF (0-3); WBC/HPF 0-3 HPF (0-3)
[2018-05-26 18:47] LABS: #Eosinphils 0.1 thou/uL (0.0-0.7); #Lymphocytes 1.2 thou/uL (1.20-3.40); #Monocytes 0.5 thou/uL (0.11-0.59); #Neutrophils 4.8 thou/uL (1.40-6.50); %Basophils 0.7 % (0.0-1.0); %Eosinophils 1.1 % (0.0-10.0); %Lymphocytes 17.6 % (21.0-51.0); %Monocytes 7.4 % (0.0-10.0); %Neutrophils 73.3 % (42.0-75.0); MDiff Complete? YES; Macrocytosis SLIGHT = 6-15 cells (100X) (0-5/hpf); Platelet Morphology Comment Appears Adequate
[2018-05-26] MEDS: Atorvastatin Calcium 10 MG TAB PO SCH (21:12)
[2018-05-26] MEDS: Docusate 100 MG CAP PO SCH (21:13)
--- NOTE | 2018-05-27 01:28 | HP ---
ADMISSION SKILLED HISTORY AND PHYSICAL CHIEF COMPLAINT: Acute low back pain. HISTORY OF PRESENT ILLNESS: Ms. Jha is an 82-year-old female, who presented to the ER today for evaluation of acute onset of low back pain. The patient reports upon getting out of bed this morning, she was compliant with her TLSO brace, but experienced acute worsening of pain in the lumbar spine and was unable to essentially ambulate without severe pain. She took one of her home tramadol at 7 a.m. and another 2 at 11 o'clock without relief and thus presented to the ED for further evaluation. The patient has a history of osteoporosis and recent L2 compression fracture on April 03, 2018. She was evaluated in the emergency room at that time, dismissed to home and presented back to the ER on April 07 with intractable back pain. She was transferred to [facility] and admitted there until April 09 with consideration of MRI, which essentially could not be performed due to the presence of a pacemaker. She was then discharged and presented back to the emergency room on April 10 here at [facility] and was treated for intractable back pain and pain control with physical and occupational therapy in our skilled unit and Miacalcin nasal and was able to discharge to home with progressive improvement on May 01. Per the patient, she has seen her primary care physician, Dr. Guevara, and was about 1 week from being able to discontinue the TLSO brace. She was compliant with the Miacalcin nasal. She has a h/o atrial fibrillation and had a warfarin adjustment during her skilled stay, but apparently had an elevated INR at her PCP visit and thus her warfarin was adjusted back to 4 mg daily. She had a repeat lab performed on May 23 and reportedly received no call back with medication adjustment. In the emergency room today, the patient received a lumbar spine CT scan that showed worsening of her L2 compression fracture as well as her other chronic central canal stenosis at L3-L4, moderate L4-L5, similar to before. She also had unchanged mild spondylolisthesis of L5 on S1. The patient was medicated with oxycodone 10 mg in the emergency department with relief of pain. However, since her transfer to the floor, she has had 2 episodes of emesis, nonbilious, nonbloody and her nausea has since been relieved with ondansetron ODT. She attributes the nausea to the oxycodone. PAST MEDICAL HISTORY: 1. Type 2 diabetes. 2. Hyperlipidemia. 3. Hypertension. 4. Osteoporosis. 5. History of low back fracture. 6. CVA. 7. Lumbar compression fracture at L2 on April 03, 2018. 8. Atrial fibrillation, on chronic anticoagulation. PAST SURGICAL HISTORY: 1. Cholecystectomy. 2. Tonsillectomy. 3. Pacemaker. PSYCHIATRIC HISTORY: Negative. SOCIAL HISTORY: No illicit drugs, alcohol, or tobacco use. The patient is and lives at home with her . FAMILY HISTORY: Noncontributory to this case. ALLERGIES: NO KNOWN DRUG ALLERGIES. CURRENT MEDICATIONS: 1. Warfarin 4 mg daily. 2. Aspirin 81 mg p.o. every day. 3. Norvasc 10 mg p.o. every day. 4. Calcitonin nasal one spray alternating nostril every other day. 5. Loperamide 2 mg as directed p.r.n. diarrhea. 6. Hydrochlorothiazide 25 mg p.o. every day. 7. Lisinopril 20 mg p.o. every day. 8. Meclizine 25 mg p.o. b.i.d. p.r.n. dizziness. 9. Zocor 20 mg p.o. at bedtime. 10. Pioglitazone/metformin 15/500 one p.o. every day. 11. Tramadol 50 mg p.o. every 6 hours p.r.n. pain. 12. Acetaminophen 650 mg p.o. every 4 hours p.r.n. fever or mild pain. REVIEW OF SYSTEMS: GENERAL: The patient denies fever, weakness. She was progressively getting stronger with TLSO brace when upright. EYES: She does have peripheral vision loss. HENT: Denies sore throat, ear pain. No hearing deficit. CARDIOVASCULAR: Denies chest pain, orthopnea, PND, or palpitations. RESPIRATORY: Denies shortness of breath, cough, or hemoptysis. GASTROINTESTINAL: Positive nausea with vomiting as per HPI, but not prior to ED presentation. No diarrhea or constipation. No abdominal pain. GENITOURINARY: Denies dysuria or gross hematuria. LYMPHATIC: Denies edema. HEMATOLOGIC: Denies any recent bleeding. PSYCH: Denies past history. PHYSICAL EXAMINATION: VITAL SIGNS: Temperature 97.8, pulse 62, respirations 20, O2 saturation 95% on room air, and blood pressure 154/67. GENERAL: Well-developed, overweight female, in no acute distress with the TLSO brace in place, in the supine position, in bed. Alert and oriented x3. HEENT: Pupils equally round and reactive to light and accommodation. Extraocular muscles intact. Nares are patent without discharge. Tongue protrudes in the midline. NECK: Supple without lymphadenopathy, thyromegaly, JVD, or bruits. HEART: Regular rate and rhythm. Normal S1, S2. No murmurs, clicks, rubs, or gallops. LUNGS: Clear to auscultation with good air entry bilaterally. No crackles or wheezes. ABDOMEN: Positive bowel sounds in all 4 quadrants. Soft, nontender, and nondistended. No masses, guarding, or rebound tenderness. EXTREMITIES: No cyanosis, clubbing, or edema. MUSCULOSKELETAL: Positive tenderness to palpation of the upper lumbar region at the midline. NEUROLOGIC: Cranial nerves 2 through 12 grossly intact. No focal deficits. Motor is 5/5 and moves all extremities x4. LABORATORY DATA: None performed in the ED. IMAGING: Lumbar spine CT shows L2 compression fracture that has worsened slightly since the March scan and remainder as per HPI. ASSESSMENT AND PLAN: 1. Acute worsening of an approximate 5-week old L2 compression fracture with intractable pain. The patient will be admitted for pain control, PT, OT, case management consult for disposition planning. I will try to arrange outpatient Neurosurgery consultation to see if the patient might be a candidate for any intervention. She will use the TLSO brace p.r.n. for comfort and while upright and out of bed. We will continue the Miacalcin nasal. We will continue Tylenol for mild pain, tramadol for moderate pain, and Velma for severe pain. We will provide antiemetics p.r.n. for nausea. Will perform baseline admission labs including UA and culture. 2. Hypertension. The patient will be continued on her current regimen with blood pressure monitoring. 3. Type 2 diabetes. We will get Accu-Cheks q.a.c. and at bedtime with a Humalog mild and bedtime sliding scale and hypoglycemia protocol p.r.n. as well as a diabetic regular diet. 4. Hyperlipidemia. The patient will be continued on her statin. 5. Atrial fibrillation. The patient is currently rate controlled and we will continue her warfarin at 4 mg with daily PT/INRs and pharmacy to adjust dosing. 6. History of cerebrovascular accident. We will continue the patient's aspirin. 7. Vision deficit. The patient may need to consider short term placement at a rehab facility given her multiple recent readmissions. 8. Prophylaxis. The patient will be placed on Pepcid and again will be continued on her warfarin. 9. The patient's code status is wished to be do not resuscitate. Job ID: [id number] MTDD
[2018-05-27] MEDS: Pioglitazone HCl 15 MG TAB PO SCH (08:53)
[2018-05-27] MEDS: metFORMIN 500 MG TAB PO SCH (08:53)
[2018-05-27] MEDS: Hydrochlorothiazide 25 MG TAB PO SCH (08:53)
[2018-05-27] MEDS: Amlodipine 5 MG TAB PO SCH (08:54)
[2018-05-27] MEDS: Docusate 100 MG CAP PO SCH ×2 (08:54→21:05)
[2018-05-27] MEDS: Lisinopril 20 MG TAB PO SCH (08:54)
[2018-05-27] MEDS: Calcitonin,Salmon,Synthetic 200 Units 3.7 ML PUMP L NARE SCH (08:56)
[2018-05-27] MEDS ORDERED: [UNRECOGNIZED DRUG - OTHER] PO SCH (09:00)
[2018-05-27] MEDS ORDERED: PIOGLITAZONE HCL PO SCH (09:00)
[2018-05-27] MEDS ORDERED: METFORMIN HCL PO SCH (09:00)
[2018-05-27] MEDS: traMADol HCl 50 MG TAB PO PRN (09:05)
[2018-05-27] MEDS: HYDROcodone/Acetaminophen 5/325 mg Tablet PO PRN ×2 (11:30→21:06)
[2018-05-27] MEDS: Atorvastatin Calcium 10 MG TAB PO SCH (21:05)
[2018-05-28 05:33] LABS: INR-International Normal Ratio 2.4; Prothrombin Time 25.9 SEC (12.0-14.7)
[2018-05-28] MEDS ORDERED: HYDROcodone/Acetaminophen 5/325 mg Tablet ONE (07:57)
[2018-05-28] MEDS: HYDROcodone/Acetaminophen 5/325 mg Tablet PO PRN ×2 (08:11→14:17)
[2018-05-28] MEDS: metFORMIN 500 MG TAB PO SCH (10:29)
[2018-05-28] MEDS: Amlodipine 5 MG TAB PO SCH (10:30)
[2018-05-28] MEDS: Lisinopril 20 MG TAB PO SCH (10:31)
[2018-05-28] MEDS: Hydrochlorothiazide 25 MG TAB PO SCH (10:32)
[2018-05-28] MEDS: Pioglitazone HCl 15 MG TAB PO SCH (10:32)
[2018-05-28] MEDS: Docusate 100 MG CAP PO SCH ×2 (10:33→20:15)
[2018-05-28] MEDS: Calcitonin,Salmon,Synthetic 200 Units 3.7 ML PUMP R NARE SCH (10:39)
[2018-05-28] MEDS ORDERED: Warfarin Sodium 2 MG TAB PO SCH (16:51)
[2018-05-28] MEDS: Atorvastatin Calcium 10 MG TAB PO SCH (20:15)
[2018-05-29] MEDS: HYDROcodone/Acetaminophen 5/325 mg Tablet PO PRN ×3 (03:21→18:41)
[2018-05-29 05:43] LABS: INR-International Normal Ratio 1.5; Prothrombin Time 17.7 SEC (12.0-14.7)
[2018-05-29] MEDS: Pioglitazone HCl 15 MG TAB PO SCH (08:40)
[2018-05-29] MEDS: metFORMIN 500 MG TAB PO SCH (08:40)
[2018-05-29] MEDS: Docusate 100 MG CAP PO SCH ×2 (08:42→20:42)
[2018-05-29] MEDS: Amlodipine 5 MG TAB PO SCH (08:48)
[2018-05-29] MEDS: Lisinopril 20 MG TAB PO SCH (08:49)
[2018-05-29] MEDS: Hydrochlorothiazide 25 MG TAB PO SCH (08:50)
[2018-05-29] MEDS: traMADol HCl 50 MG TAB PO PRN ×2 (08:50→15:23)
[2018-05-29] MEDS: Calcitonin,Salmon,Synthetic 200 Units 3.7 ML PUMP L NARE SCH (08:53)
[2018-05-29 13:07] VITALS: BMI 31.2
[2018-05-29] MEDS: Warfarin Sodium 2 MG TAB PO SCH (17:00)
--- NOTE | 2018-05-29 18:51 | RAD ---
LUMBAR SPINE 05/29/18 COMPARISON: Comparison is made with the 05/26/18 CT done three days ago. A severe anterior compression of T11 looks the same as before. The anterior compression of the L2 jyoti tebral body is unchanged from the recent scan, but is slightly more than was seen on the older Octobe r scan. I would note, however, the superior end plate of L1 is now scalloping and beginning to compr ess, which I do not appreciate on the scan even three days ago. The disc spaces remain normal in heig ht. Minor spondylolisthesis of L5 on S1 is due to facet changes. The SI joints appear normal. osteopo rosis is noted as usual. IMPRESSION: 1. Scalloping of the superior end plate of L1, a new finding even since the CT scan done three d ays ago. This vertebra is beginning to compress. 2. L2 compression fracture, unchanged from three days ago. 3. Other findings as noted above. Code T POS: HOME
[2018-05-29] MEDS: Atorvastatin Calcium 10 MG TAB PO SCH (20:42)
[2018-05-29] MEDS: Ondansetron ODT 4 MG TAB PO PRN (20:55)
[2018-05-30] MEDS: HYDROcodone/Acetaminophen 5/325 mg Tablet PO PRN ×3 (01:44→15:06)
[2018-05-30 06:11] LABS: INR-International Normal Ratio 1.2; Prothrombin Time 15.7 SEC (12.0-14.7)
[2018-05-30] MEDS: Pioglitazone HCl 15 MG TAB PO SCH (08:22)
[2018-05-30] MEDS: metFORMIN 500 MG TAB PO SCH (08:22)
[2018-05-30] MEDS: Docusate 100 MG CAP PO SCH ×2 (08:23→20:18)
[2018-05-30] MEDS: Hydrochlorothiazide 25 MG TAB PO SCH (08:23)
[2018-05-30] MEDS: Amlodipine 5 MG TAB PO SCH (08:23)
[2018-05-30] MEDS: Lisinopril 20 MG TAB PO SCH (08:23)
[2018-05-30] MEDS: Calcitonin,Salmon,Synthetic 200 Units 3.7 ML PUMP R NARE SCH (08:25)
[2018-05-30] MEDS: Warfarin Sodium 2 MG TAB PO SCH (17:08)
[2018-05-30] MEDS: traMADol HCl 50 MG TAB PO PRN ×2 (17:20→23:56)
[2018-05-30] MEDS ORDERED: Cyclobenzaprine 10 MG TAB PO PRN (17:33)
[2018-05-30] MEDS: Ondansetron ODT 4 MG TAB PO PRN (17:39)
[2018-05-30] MEDS: Atorvastatin Calcium 10 MG TAB PO SCH (20:18)
[2018-05-31 05:48] LABS: INR-International Normal Ratio 1.3; Prothrombin Time 16.6 SEC (12.0-14.7)
[2018-05-31 06:08] VITALS: BP 137/62; TEMP 98.2
[2018-05-31] MEDS: Ondansetron ODT 4 MG TAB PO PRN (06:55)
== END 2018-05-31 08:15 | disposition home or self-care (01) | DRG 544 ==
LOC: BURERS 12:28 → BURMED 14:15
PROVIDERS: ADMIT Family Medicine; ATTEND Family Medicine
DX: M80.08XA Age-related osteoporosis with current pathological fracture, vertebra(e), initial encounter for fracture (principal); E11.9 Type 2 diabetes mellitus without complications; E78.5 Hyperlipidemia, unspecified; Z66 Do not resuscitate; E78.00 Pure hypercholesterolemia, unspecified; I10 Essential (primary) hypertension; Z86.73 Personal history of transient ischemic attack (TIA), and cerebral infarction without residual deficits; I48.91 Unspecified atrial fibrillation; H53.8 Other visual disturbances; Z87.442 Personal history of urinary calculi; Z90.49 Acquired absence of other specified parts of digestive tract; Z90.89 Acquired absence of other organs; Z95.0 Presence of cardiac pacemaker; Z79.01 Long term (current) use of anticoagulants; Z79.82 Long term (current) use of aspirin; Z79.899 Other long term (current) drug therapy
CPT/HCPCS: 36415; 36416; 72100; 72131; 80053; 81001; 85025; 85610; 87086; A4353; Q0162

== ENCOUNTER 2018-06-08 18:53 | Emergency (ER) | payer MEDICARE ==
[2018-06-08] MEDS ORDERED: Morphine 4 MG/ML VIAL ONE (19:16)
[2018-06-08] MEDS ORDERED: HYDROcodone/Acetaminophen 5/325 mg Tablet ONE (20:43)
--- NOTE | 2018-06-09 11:16 | CT ---
PRELIMINARY REPORT/[facility]/EMERGENTY AFTER-HOURS PROCEDURE CT Lumbar Spine Without Contrast EXAM DATE/TIME: 06/08/2018 7:32 PM CLINICAL HISTORY: 82 years old, female; Pain; Low back pain TECHNIQUE: Axial computed tomography images of the lumbar spine without intravenous contrast. All CT scans at this facility use at least one of these dose optimization techniques: automated expos ure control; mA and/or kV adjustment per patient size (includes targeted exams where dose is matched to clinical indication); or iterative reconstruction. Coronal and sagittal reformatted images were created and reviewed. COMPARISON: No relevant prior studies available. FINDINGS: Vertebrae: There is diffuse osteopenia. There are postoperative changes of kyphoplasty of the L2 and L1 vertebral bodies at the site of chronic compression fractures. There may be additional acute compr ession fracture at the right and left lateral periphery of the superior endplate of the L1 vertebral body which could represent new fracture since the prior kyphoplasty. There is severe chronic appearin g compression fracture of the T11 vertebral body. Discs/Spinal canal/Neural foramina: There is mild bilateral facet hypertrophy at L5-S1. Soft tissues: There may be a small anterior paraspinal hematoma at the L1 vertebral level. IMPRESSION: 1. There are postoperative changes of kyphoplasty of the L2 and L1 vertebral bodies at the site of ch ronic compression fractures. There may be additional acute compression fracture at the right and left lateral periphery of the superior endplate of the L1 vertebral body which could represent new fracture since the prior kyphoplasty. There is severe chronic appearing compression fracture of the T 11 vertebral body. 2. There may be a small anterior paraspinal hematoma at the L1 vertebral level. Thank you for allowing us to participate in the care of your patient. Dictated and Authenticated by: Bal Garcias MD 06/08/2018 8:18 PM Central Time ([place] & [place]) CT OF THE LUMBAR SPINE 06/08/18 Comparison is made with prior study of 05/26/18. The patient has had a vertebroplasty of the L1 and L2 compression fractures in the interval. Some of the vertebroplasty material barely protrudes into the spinal canal on the right side at L1 but does not cause any significant compression of the nerves or sac. There is some small lines at the lateral aspects of the superior end plate of L1 that could be small new fracture lines since the vertebroplasty. A chronic severe compression of T11 is noted and i s better demonstrated on this study than the prior ones. Anterolisthesis of L5 on S1 appears to be du e to facet changes and is about the same as before. There may be a small anterior paraspinal hematoma at the L1 level. Impression is in agreement with preliminary reading by [facility] which includes: 1. Postop kyphoplasty of L1 and L2 vertebral bodies which have chronic compression fractures. 2. There may be additional acute compression fractures of the right and left lateral periphery o f the superior plate of the L1 vertebral body. 3. Severe chronic appearing compression fracture of T11 vertebral body which is better seen toda y than on the prior studies. 4. Possible small anterior paraspinal hematoma at the L1 vertebral level. 5. Other findings as listed above and in the [facility] report. POS: HOME
== END 2018-06-08 21:00 | disposition home or self-care (01) ==
LOC: BURERS 18:53
DX: M54.5 Low back pain (principal); E11.9 Type 2 diabetes mellitus without complications; I10 Essential (primary) hypertension; Z79.899 Other long term (current) drug therapy; Z79.84 Long term (current) use of oral hypoglycemic drugs
CPT/HCPCS: 72131; 96372; J2270

== ENCOUNTER → 2018-06-21 | Day surgery (SDC) | payer MEDICARE ==
[2018-06-21 16:53] VITALS: BP 159/60; TEMP 98.1
[2018-06-21 17:04] LABS: Clarity Cloudy (Clear); Leukocyte Large (Negative); Nitrite Positive (Negative); Specific Gravity, Urine 1.015 (1.005-1.030); pH, Urine 6.5 (5.0-9.0)
[2018-06-21 17:05] LABS: Bacteria/HPF 3+ HPF (None Seen); Bilirubin Negative (Negative); Blood, Urine Moderate (Negative); Glucose, Urine (Dipstick) Negative (Negative); Other Microscopic Description C&S SET UP; Protein, Urine (Dipstick) 30 mg/dL (Neg-Trace); RBC/HPF 0-3 HPF (0-3); Squamous Epithelial 0-3 HPF (0-3); Urobilinogen 0.2 mg/dL (0.2-1.0)
== END ==
LOC: BUR/OP 16:11
PROVIDERS: ATTEND Family Medicine
DX: R33.9 Retention of urine, unspecified (principal); R30.0 Dysuria; S32.010D Wedge compression fracture of first lumbar vertebra, subsequent encounter for fracture with routine healing; S32.020D Wedge compression fracture of second lumbar vertebra, subsequent encounter for fracture with routine healing; Z66 Do not resuscitate; Z79.899 Other long term (current) drug therapy
CPT/HCPCS: 81001; 87077; 87086; 87186

== ENCOUNTER 2018-07-31 12:36 | Inpatient (IN) | payer MEDICARE ==
[2018-07-31] MEDS ORDERED: Tamsulosin HCl 0.4 MG CAP PO PRN (16:49)
[2018-07-31] MEDS ORDERED: Loperamide HCl 2 MG CAP PO PRN (17:30)
[2018-07-31] MEDS: Warfarin Sodium 1 MG TAB PO SCH (17:49)
[2018-07-31] MEDS: Amlodipine 5 MG TAB PO SCH (20:31)
[2018-07-31] MEDS: Atorvastatin Calcium 10 MG TAB PO SCH (20:31)
[2018-07-31] MEDS: Famotidine 20 MG TAB PO SCH (20:35)
[2018-07-31] MEDS: Acetaminophen 325 MG TAB PO SCH (20:35)
[2018-07-31] MEDS: Carvedilol 12.5 MG TAB PO SCH (20:38)
[2018-07-31] MEDS: rOPINIRole HCl 2 MG TAB PO SCH (20:39)
[2018-07-31] MEDS ORDERED: Prevnar 13-Val Conj/PF 0.5 ML SYRINGE IM ONE (21:00)
[2018-08-01 05:02] LABS: INR-International Normal Ratio 1.6; Prothrombin Time 19.3 SEC (12.0-14.7)
[2018-08-01 05:12] LABS: Hemoglobin 10.1 g/dL (12.0-16.0); Platelet Count 165 thou/uL (130-400)
[2018-08-01] MEDS: Acetaminophen 325 MG TAB PO SCH ×2 (08:15→20:12)
[2018-08-01] MEDS: Pioglitazone HCl 15 MG TAB PO SCH (08:16)
[2018-08-01] MEDS: Aspirin Chewable 81 MG TAB PO SCH (08:16)
[2018-08-01] MEDS: Carvedilol 12.5 MG TAB PO SCH ×2 (08:16→20:12)
[2018-08-01] MEDS: Lisinopril 20 MG TAB PO SCH (08:17)
[2018-08-01] MEDS: Hydrochlorothiazide 25 MG TAB PO SCH (08:23)
[2018-08-01] MEDS: Polyethylene Glycol 3350 17 GM Packet PO SCH (08:23)
[2018-08-01] MEDS: metFORMIN 500 MG TAB PO SCH (08:24)
[2018-08-01] MEDS: HYDROcodone/Acetaminophen 5/325 mg Tablet PO PRN (11:59)
[2018-08-01] MEDS: Warfarin Sodium 1 MG TAB PO SCH (17:29)
[2018-08-01] MEDS: Atorvastatin Calcium 10 MG TAB PO SCH (20:12)
[2018-08-01] MEDS: Famotidine 20 MG TAB PO SCH (20:12)
[2018-08-01] MEDS: Amlodipine 5 MG TAB PO SCH (20:12)
[2018-08-01] MEDS: rOPINIRole HCl 2 MG TAB PO SCH (20:13)
[2018-08-02 04:51] LABS: INR-International Normal Ratio 1.4; Prothrombin Time 17.1 SEC (12.0-14.7)
[2018-08-02] MEDS: HYDROcodone/Acetaminophen 5/325 mg Tablet PO PRN (09:01)
[2018-08-02] MEDS: Acetaminophen 325 MG TAB PO SCH ×2 (09:03→20:40)
[2018-08-02] MEDS: Aspirin Chewable 81 MG TAB PO SCH (09:03)
[2018-08-02] MEDS: Lisinopril 20 MG TAB PO SCH (09:04)
[2018-08-02] MEDS: metFORMIN 500 MG TAB PO SCH (09:04)
[2018-08-02] MEDS: Hydrochlorothiazide 25 MG TAB PO SCH (09:04)
[2018-08-02] MEDS: Polyethylene Glycol 3350 17 GM Packet PO SCH (09:05)
[2018-08-02] MEDS: Pioglitazone HCl 15 MG TAB PO SCH (09:05)
[2018-08-02] MEDS: Carvedilol 12.5 MG TAB PO SCH ×2 (09:05→20:41)
[2018-08-02] MEDS: Docusate 100 MG CAP PO PRN (09:11)
[2018-08-02] MEDS: Warfarin Sodium 1 MG TAB PO SCH (17:52)
[2018-08-02] MEDS: rOPINIRole HCl 2 MG TAB PO SCH (20:38)
[2018-08-02] MEDS: Amlodipine 5 MG TAB PO SCH (20:40)
[2018-08-02] MEDS: Famotidine 20 MG TAB PO SCH (20:41)
[2018-08-02] MEDS: Atorvastatin Calcium 10 MG TAB PO SCH (20:41)
[2018-08-03 05:20] LABS: Hemoglobin 10.4 g/dL (12.0-16.0); Platelet Count 175 thou/uL (130-400)
[2018-08-03 05:23] LABS: INR-International Normal Ratio 1.3; Prothrombin Time 16.6 SEC (12.0-14.7)
[2018-08-03] MEDS: Pioglitazone HCl 15 MG TAB PO SCH (08:34)
[2018-08-03] MEDS: Polyethylene Glycol 3350 17 GM Packet PO SCH (08:34)
[2018-08-03] MEDS: Acetaminophen 325 MG TAB PO SCH ×2 (08:35→22:14)
[2018-08-03] MEDS: Aspirin Chewable 81 MG TAB PO SCH (08:35)
[2018-08-03] MEDS: Lisinopril 20 MG TAB PO SCH (08:35)
[2018-08-03] MEDS: Carvedilol 12.5 MG TAB PO SCH ×2 (08:37→22:20)
[2018-08-03] MEDS: Hydrochlorothiazide 25 MG TAB PO SCH (08:37)
[2018-08-03] MEDS: metFORMIN 500 MG TAB PO SCH (08:38)
[2018-08-03] MEDS: Docusate 100 MG CAP PO PRN ×2 (08:41→22:20)
[2018-08-03] MEDS: HYDROcodone/Acetaminophen 5/325 mg Tablet PO PRN ×2 (12:59→22:25)
[2018-08-03] MEDS: Warfarin Sodium 1 MG TAB PO SCH (17:19)
[2018-08-03] MEDS: Amlodipine 5 MG TAB PO SCH (22:15)
[2018-08-03] MEDS: Famotidine 20 MG TAB PO SCH (22:18)
[2018-08-03] MEDS: Atorvastatin Calcium 10 MG TAB PO SCH (22:20)
[2018-08-03] MEDS: rOPINIRole HCl 2 MG TAB PO SCH (22:21)
[2018-08-04 05:38] LABS: INR-International Normal Ratio 1.4; Prothrombin Time 17.6 SEC (12.0-14.7)
[2018-08-04] MEDS: Polyethylene Glycol 3350 17 GM Packet PO SCH (09:22)
[2018-08-04] MEDS: Lisinopril 20 MG TAB PO SCH (09:23)
[2018-08-04] MEDS: Aspirin Chewable 81 MG TAB PO SCH (09:23)
[2018-08-04] MEDS: Pioglitazone HCl 15 MG TAB PO SCH (09:23)
[2018-08-04] MEDS: Hydrochlorothiazide 25 MG TAB PO SCH (09:23)
[2018-08-04] MEDS: Docusate 100 MG CAP PO PRN (09:24)
[2018-08-04] MEDS: Acetaminophen 325 MG TAB PO SCH ×2 (09:24→20:31)
[2018-08-04] MEDS: metFORMIN 500 MG TAB PO SCH (09:24)
[2018-08-04] MEDS: Carvedilol 12.5 MG TAB PO SCH ×2 (09:27→20:30)
[2018-08-04] MEDS ORDERED: Milk Of Magnesia 30 ML UDCUP PO PRN (11:50)
[2018-08-04] MEDS ORDERED: Bisacodyl 10 MG SUPP PR PRN (11:50)
[2018-08-04] MEDS: HYDROcodone/Acetaminophen 5/325 mg Tablet PO PRN (14:06)
[2018-08-04] MEDS: Warfarin Sodium 1 MG TAB PO SCH (17:24)
[2018-08-04] MEDS: Amlodipine 5 MG TAB PO SCH (20:29)
[2018-08-04] MEDS: Famotidine 20 MG TAB PO SCH (20:29)
[2018-08-04] MEDS: Atorvastatin Calcium 10 MG TAB PO SCH (20:30)
[2018-08-04] MEDS: rOPINIRole HCl 2 MG TAB PO SCH (20:32)
[2018-08-05 05:45] LABS: Hemoglobin 10.4 g/dL (12.0-16.0); Platelet Count 166 thou/uL (130-400)
[2018-08-05 05:50] LABS: INR-International Normal Ratio 1.2; Prothrombin Time 15.3 SEC (12.0-14.7)
[2018-08-05] MEDS: HYDROcodone/Acetaminophen 5/325 mg Tablet PO PRN ×2 (06:55→17:14)
[2018-08-05] MEDS: Pioglitazone HCl 15 MG TAB PO SCH (08:25)
[2018-08-05] MEDS: Aspirin Chewable 81 MG TAB PO SCH (08:25)
[2018-08-05] MEDS: Polyethylene Glycol 3350 17 GM Packet PO SCH (08:25)
[2018-08-05] MEDS: Acetaminophen 325 MG TAB PO SCH ×2 (08:25→21:03)
[2018-08-05] MEDS: metFORMIN 500 MG TAB PO SCH (08:25)
[2018-08-05] MEDS: Hydrochlorothiazide 25 MG TAB PO SCH (08:28)
[2018-08-05] MEDS: Carvedilol 12.5 MG TAB PO SCH ×2 (08:28→21:05)
[2018-08-05] MEDS: Lisinopril 20 MG TAB PO SCH (08:28)
[2018-08-05] MEDS: Warfarin Sodium 1 MG TAB PO SCH (17:15)
[2018-08-05] MEDS: Famotidine 20 MG TAB PO SCH (21:03)
[2018-08-05] MEDS: Atorvastatin Calcium 10 MG TAB PO SCH (21:04)
[2018-08-05] MEDS: Amlodipine 5 MG TAB PO SCH (21:04)
[2018-08-05] MEDS: rOPINIRole HCl 2 MG TAB PO SCH (21:05)
[2018-08-06 03:05] VITALS: BMI 27.9
[2018-08-06 05:21] LABS: INR-International Normal Ratio 1.4; Prothrombin Time 16.8 SEC (12.0-14.7)
[2018-08-06] MEDS: HYDROcodone/Acetaminophen 5/325 mg Tablet PO PRN (05:27)
[2018-08-06] MEDS: Aspirin Chewable 81 MG TAB PO SCH (08:49)
[2018-08-06] MEDS: metFORMIN 500 MG TAB PO SCH (08:49)
[2018-08-06] MEDS: Pioglitazone HCl 15 MG TAB PO SCH (08:49)
[2018-08-06] MEDS: Polyethylene Glycol 3350 17 GM Packet PO SCH (08:49)
[2018-08-06] MEDS: Acetaminophen 325 MG TAB PO SCH ×2 (08:49→20:57)
[2018-08-06] MEDS: Hydrochlorothiazide 25 MG TAB PO SCH (08:50)
[2018-08-06] MEDS: Carvedilol 12.5 MG TAB PO SCH ×2 (08:50→20:58)
[2018-08-06] MEDS: Lisinopril 20 MG TAB PO SCH (08:50)
[2018-08-06] MEDS: Warfarin Sodium 1 MG TAB PO SCH (16:27)
[2018-08-06] MEDS: Atorvastatin Calcium 10 MG TAB PO SCH (20:57)
[2018-08-06] MEDS: Famotidine 20 MG TAB PO SCH (20:58)
[2018-08-06] MEDS: Amlodipine 5 MG TAB PO SCH (20:59)
[2018-08-06] MEDS: rOPINIRole HCl 2 MG TAB PO SCH (21:00)
[2018-08-07 05:22] LABS: Hemoglobin 10.3 g/dL (12.0-16.0); Platelet Count 177 thou/uL (130-400)
[2018-08-07 05:24] LABS: INR-International Normal Ratio 1.2; Prothrombin Time 14.8 SEC (12.0-14.7)
[2018-08-07] MEDS: HYDROcodone/Acetaminophen 5/325 mg Tablet PO PRN (06:06)
[2018-08-07] MEDS: Aspirin Chewable 81 MG TAB PO SCH (08:32)
[2018-08-07] MEDS: Lisinopril 20 MG TAB PO SCH (08:32)
[2018-08-07] MEDS: Pioglitazone HCl 15 MG TAB PO SCH (08:32)
[2018-08-07] MEDS: Acetaminophen 325 MG TAB PO SCH ×2 (08:32→20:01)
[2018-08-07] MEDS: metFORMIN 500 MG TAB PO SCH (08:33)
[2018-08-07] MEDS: Carvedilol 12.5 MG TAB PO SCH ×2 (08:33→20:03)
[2018-08-07] MEDS: Hydrochlorothiazide 25 MG TAB PO SCH (08:33)
[2018-08-07] MEDS: Polyethylene Glycol 3350 17 GM Packet PO SCH (10:55)
[2018-08-07] MEDS: Warfarin Sodium 1 MG TAB PO SCH (16:57)
[2018-08-07] MEDS: Famotidine 20 MG TAB PO SCH (20:01)
[2018-08-07] MEDS: Atorvastatin Calcium 10 MG TAB PO SCH (20:01)
[2018-08-07] MEDS: Amlodipine 5 MG TAB PO SCH (20:01)
[2018-08-07] MEDS: rOPINIRole HCl 2 MG TAB PO SCH (20:03)
[2018-08-08] MEDS: HYDROcodone/Acetaminophen 5/325 mg Tablet PO PRN (05:02)
[2018-08-08 05:19] LABS: INR-International Normal Ratio 1.3
[2018-08-08] MEDS: metFORMIN 500 MG TAB PO SCH (09:00)
[2018-08-08] MEDS: Hydrochlorothiazide 25 MG TAB PO SCH (09:00)
[2018-08-08] MEDS: Pioglitazone HCl 15 MG TAB PO SCH (09:00)
[2018-08-08] MEDS: Aspirin Chewable 81 MG TAB PO SCH (09:00)
[2018-08-08] MEDS: Carvedilol 12.5 MG TAB PO SCH ×2 (09:00→21:02)
[2018-08-08] MEDS: Lisinopril 20 MG TAB PO SCH (09:00)
[2018-08-08] MEDS: Acetaminophen 325 MG TAB PO SCH ×2 (09:00→21:02)
[2018-08-08] MEDS: Polyethylene Glycol 3350 17 GM Packet PO SCH (14:09)
[2018-08-08] MEDS: Warfarin Sodium 3 MG TAB PO SCH (17:19)
[2018-08-08] MEDS: Amlodipine 5 MG TAB PO SCH (21:00)
[2018-08-08] MEDS: Famotidine 20 MG TAB PO SCH (21:01)
[2018-08-08] MEDS: Atorvastatin Calcium 10 MG TAB PO SCH (21:01)
[2018-08-08] MEDS: rOPINIRole HCl 2 MG TAB PO SCH (22:44)
[2018-08-09 05:07] LABS: Hemoglobin 10.1 g/dL (12.0-16.0); Platelet Count 171 thou/uL (130-400)
[2018-08-09 05:10] LABS: INR-International Normal Ratio 1.2; Prothrombin Time 15.5 SEC (12.0-14.7)
[2018-08-09] MEDS: metFORMIN 500 MG TAB PO SCH (09:29)
[2018-08-09] MEDS: Acetaminophen 325 MG TAB PO SCH ×2 (09:29→21:08)
[2018-08-09] MEDS: Hydrochlorothiazide 25 MG TAB PO SCH (09:29)
[2018-08-09] MEDS: Lisinopril 20 MG TAB PO SCH (09:29)
[2018-08-09] MEDS: Aspirin Chewable 81 MG TAB PO SCH (09:29)
[2018-08-09] MEDS: Carvedilol 12.5 MG TAB PO SCH ×2 (09:29→21:08)
[2018-08-09] MEDS: Pioglitazone HCl 15 MG TAB PO SCH (09:30)
[2018-08-09] MEDS: Polyethylene Glycol 3350 17 GM Packet PO SCH (09:30)
[2018-08-09] MEDS: Warfarin Sodium 3 MG TAB PO SCH (17:36)
[2018-08-09] MEDS: rOPINIRole HCl 2 MG TAB PO SCH (21:07)
[2018-08-09] MEDS: Amlodipine 5 MG TAB PO SCH (21:08)
[2018-08-09] MEDS: Atorvastatin Calcium 10 MG TAB PO SCH (21:09)
[2018-08-09] MEDS: Famotidine 20 MG TAB PO SCH (21:09)
[2018-08-10 05:40] LABS: Prothrombin Time 17.1 SEC (12.0-14.7)
[2018-08-10 05:41] LABS: INR-International Normal Ratio 1.4
[2018-08-10] MEDS: Hydrochlorothiazide 25 MG TAB PO SCH (08:08)
[2018-08-10] MEDS: Aspirin Chewable 81 MG TAB PO SCH (08:08)
[2018-08-10] MEDS: Pioglitazone HCl 15 MG TAB PO SCH (08:08)
[2018-08-10] MEDS: Acetaminophen 325 MG TAB PO SCH ×2 (08:09→20:39)
[2018-08-10] MEDS: metFORMIN 500 MG TAB PO SCH (08:09)
[2018-08-10] MEDS: Carvedilol 12.5 MG TAB PO SCH ×2 (08:09→20:46)
[2018-08-10] MEDS: Lisinopril 20 MG TAB PO SCH (08:11)
[2018-08-10] MEDS: Polyethylene Glycol 3350 17 GM Packet PO SCH (08:12)
[2018-08-10] MEDS: Warfarin Sodium 3 MG TAB PO SCH (17:30)
[2018-08-10] MEDS: rOPINIRole HCl 2 MG TAB PO SCH (20:39)
[2018-08-10] MEDS: Amlodipine 5 MG TAB PO SCH (20:42)
[2018-08-10] MEDS: Atorvastatin Calcium 10 MG TAB PO SCH (20:46)
[2018-08-10] MEDS: Famotidine 20 MG TAB PO SCH (20:46)
[2018-08-11] MEDS: HYDROcodone/Acetaminophen 5/325 mg Tablet PO PRN (04:49)
[2018-08-11 04:58] LABS: Hemoglobin 9.6 g/dL (12.0-16.0); Platelet Count 163 thou/uL (130-400)
[2018-08-11 05:10] LABS: INR-International Normal Ratio 1.5; Prothrombin Time 18.1 SEC (12.0-14.7)
[2018-08-11] MEDS: Hydrochlorothiazide 25 MG TAB PO SCH (09:38)
[2018-08-11] MEDS: Aspirin Chewable 81 MG TAB PO SCH (09:38)
[2018-08-11] MEDS: Carvedilol 12.5 MG TAB PO SCH ×2 (09:38→20:50)
[2018-08-11] MEDS: Lisinopril 20 MG TAB PO SCH (09:39)
[2018-08-11] MEDS: Pioglitazone HCl 15 MG TAB PO SCH (09:40)
[2018-08-11] MEDS: metFORMIN 500 MG TAB PO SCH (09:40)
[2018-08-11] MEDS: Acetaminophen 325 MG TAB PO SCH ×2 (09:41→20:50)
[2018-08-11] MEDS: Polyethylene Glycol 3350 17 GM Packet PO SCH (09:43)
[2018-08-11] MEDS: Warfarin Sodium 3 MG TAB PO SCH (19:54)
[2018-08-11] MEDS: rOPINIRole HCl 2 MG TAB PO SCH (20:37)
[2018-08-11] MEDS: Atorvastatin Calcium 10 MG TAB PO SCH (20:49)
[2018-08-11] MEDS: Amlodipine 5 MG TAB PO SCH (20:50)
[2018-08-11] MEDS: Famotidine 20 MG TAB PO SCH (20:51)
[2018-08-12 05:41] LABS: INR-International Normal Ratio 1.7; Prothrombin Time 19.9 SEC (12.0-14.7)
[2018-08-12] MEDS: Hydrochlorothiazide 25 MG TAB PO SCH (09:57)
[2018-08-12] MEDS: Pioglitazone HCl 15 MG TAB PO SCH (09:57)
[2018-08-12] MEDS: Aspirin Chewable 81 MG TAB PO SCH (09:57)
[2018-08-12] MEDS: Lisinopril 20 MG TAB PO SCH (09:57)
[2018-08-12] MEDS: metFORMIN 500 MG TAB PO SCH (09:58)
[2018-08-12] MEDS: Acetaminophen 325 MG TAB PO SCH ×2 (09:58→21:30)
[2018-08-12] MEDS: Carvedilol 12.5 MG TAB PO SCH ×2 (09:58→21:31)
[2018-08-12] MEDS: Polyethylene Glycol 3350 17 GM Packet PO SCH (09:59)
[2018-08-12] MEDS: Warfarin Sodium 3 MG TAB PO SCH (16:22)
[2018-08-12] MEDS: rOPINIRole HCl 2 MG TAB PO SCH (21:29)
[2018-08-12] MEDS: Famotidine 20 MG TAB PO SCH (21:30)
[2018-08-12] MEDS: Amlodipine 5 MG TAB PO SCH (21:31)
[2018-08-12] MEDS: Atorvastatin Calcium 10 MG TAB PO SCH (21:31)
[2018-08-13 05:03] LABS: Prothrombin Time 22.5 SEC (12.0-14.7)
[2018-08-13 05:06] LABS: Hemoglobin 10.1 g/dL (12.0-16.0); Platelet Count 160 thou/uL (130-400)
[2018-08-13] MEDS: Polyethylene Glycol 3350 17 GM Packet PO SCH (09:40)
[2018-08-13] MEDS: metFORMIN 500 MG TAB PO SCH (09:41)
[2018-08-13] MEDS: Pioglitazone HCl 15 MG TAB PO SCH (09:41)
[2018-08-13] MEDS: Acetaminophen 325 MG TAB PO SCH ×2 (09:42→20:18)
[2018-08-13] MEDS: Carvedilol 12.5 MG TAB PO SCH ×2 (09:43→20:20)
[2018-08-13] MEDS: Aspirin Chewable 81 MG TAB PO SCH (09:43)
[2018-08-13] MEDS: Lisinopril 20 MG TAB PO SCH (09:44)
[2018-08-13] MEDS: Hydrochlorothiazide 25 MG TAB PO SCH (09:45)
[2018-08-13] MEDS: Warfarin Sodium 3 MG TAB PO SCH (17:27)
[2018-08-13] MEDS: Amlodipine 5 MG TAB PO SCH (20:18)
[2018-08-13] MEDS: Famotidine 20 MG TAB PO SCH (20:18)
[2018-08-13] MEDS: Atorvastatin Calcium 10 MG TAB PO SCH (20:20)
[2018-08-13] MEDS: rOPINIRole HCl 2 MG TAB PO SCH (20:20)
[2018-08-14 05:40] LABS: INR-International Normal Ratio 2.2; Prothrombin Time 24.5 SEC (12.0-14.7)
[2018-08-14] MEDS: Polyethylene Glycol 3350 17 GM Packet PO SCH (09:10)
[2018-08-14] MEDS: Acetaminophen 325 MG TAB PO SCH ×2 (09:10→19:39)
[2018-08-14] MEDS: Pioglitazone HCl 15 MG TAB PO SCH (09:10)
[2018-08-14] MEDS: metFORMIN 500 MG TAB PO SCH (09:10)
[2018-08-14] MEDS: Hydrochlorothiazide 25 MG TAB PO SCH (09:11)
[2018-08-14] MEDS: Lisinopril 20 MG TAB PO SCH (09:11)
[2018-08-14] MEDS: Aspirin Chewable 81 MG TAB PO SCH (09:11)
[2018-08-14] MEDS: Carvedilol 12.5 MG TAB PO SCH ×2 (09:11→19:40)
[2018-08-14] MEDS: Warfarin Sodium 3 MG TAB PO SCH (17:56)
[2018-08-14] MEDS: Atorvastatin Calcium 10 MG TAB PO SCH (19:39)
[2018-08-14] MEDS: Famotidine 20 MG TAB PO SCH (19:40)
[2018-08-14] MEDS: Amlodipine 5 MG TAB PO SCH (19:40)
[2018-08-14] MEDS: rOPINIRole HCl 2 MG TAB PO SCH (19:41)
[2018-08-15 04:20] LABS: Hemoglobin 9.4 g/dL (12.0-16.0); Platelet Count 163 thou/uL (130-400)
[2018-08-15 04:39] LABS: INR-International Normal Ratio 2.1
[2018-08-15] MEDS: Pioglitazone HCl 15 MG TAB PO SCH (08:54)
[2018-08-15] MEDS: metFORMIN 500 MG TAB PO SCH (08:54)
[2018-08-15] MEDS: Lisinopril 20 MG TAB PO SCH (08:55)
[2018-08-15] MEDS: Acetaminophen 325 MG TAB PO SCH ×2 (08:55→21:26)
[2018-08-15] MEDS: Aspirin Chewable 81 MG TAB PO SCH (08:55)
[2018-08-15] MEDS: Carvedilol 12.5 MG TAB PO SCH ×2 (08:56→21:27)
[2018-08-15] MEDS: Hydrochlorothiazide 25 MG TAB PO SCH (08:56)
[2018-08-15] MEDS: Polyethylene Glycol 3350 17 GM Packet PO SCH (08:58)
[2018-08-15] MEDS: Warfarin Sodium 3 MG TAB PO SCH (17:47)
[2018-08-15] MEDS: rOPINIRole HCl 2 MG TAB PO SCH (21:26)
[2018-08-15] MEDS: Famotidine 20 MG TAB PO SCH (21:26)
[2018-08-15] MEDS: Amlodipine 5 MG TAB PO SCH (21:27)
[2018-08-15] MEDS: Atorvastatin Calcium 10 MG TAB PO SCH (21:27)
[2018-08-16] MEDS: HYDROcodone/Acetaminophen 5/325 mg Tablet PO PRN (03:03)
[2018-08-16 04:57] LABS: INR-International Normal Ratio 2.3; Prothrombin Time 25.5 SEC (12.0-14.7)
[2018-08-16] MEDS: Pioglitazone HCl 15 MG TAB PO SCH (09:29)
[2018-08-16] MEDS: Lisinopril 20 MG TAB PO SCH (09:29)
[2018-08-16] MEDS: Acetaminophen 325 MG TAB PO SCH ×2 (09:30→20:10)
[2018-08-16] MEDS: Carvedilol 12.5 MG TAB PO SCH ×2 (09:30→20:10)
[2018-08-16] MEDS: metFORMIN 500 MG TAB PO SCH (09:30)
[2018-08-16] MEDS: Hydrochlorothiazide 25 MG TAB PO SCH (09:30)
[2018-08-16] MEDS: Aspirin Chewable 81 MG TAB PO SCH (09:30)
[2018-08-16] MEDS: Polyethylene Glycol 3350 17 GM Packet PO SCH (09:32)
[2018-08-16] MEDS: Warfarin Sodium 3 MG TAB PO SCH (16:55)
[2018-08-16] MEDS: Famotidine 20 MG TAB PO SCH (20:10)
[2018-08-16] MEDS: Atorvastatin Calcium 10 MG TAB PO SCH (20:11)
[2018-08-16] MEDS: Amlodipine 5 MG TAB PO SCH (20:11)
[2018-08-16] MEDS: rOPINIRole HCl 2 MG TAB PO SCH (20:12)
[2018-08-17 06:06] LABS: Hemoglobin 9.5 g/dL (12.0-16.0); Platelet Count 155 thou/uL (130-400)
[2018-08-17 06:10] LABS: INR-International Normal Ratio 2.7; Prothrombin Time 28.6 SEC (12.0-14.7)
[2018-08-17] MEDS: Pioglitazone HCl 15 MG TAB PO SCH (10:02)
[2018-08-17] MEDS: Lisinopril 20 MG TAB PO SCH (10:02)
[2018-08-17] MEDS: Aspirin Chewable 81 MG TAB PO SCH (10:02)
[2018-08-17] MEDS: Carvedilol 12.5 MG TAB PO SCH ×2 (10:03→20:43)
[2018-08-17] MEDS: Polyethylene Glycol 3350 17 GM Packet PO SCH (10:03)
[2018-08-17] MEDS: metFORMIN 500 MG TAB PO SCH (10:03)
[2018-08-17] MEDS: Acetaminophen 325 MG TAB PO SCH ×2 (10:03→20:43)
[2018-08-17] MEDS: Hydrochlorothiazide 25 MG TAB PO SCH (10:03)
[2018-08-17] MEDS ORDERED: Ondansetron ODT 4 MG TAB PO PRN (12:21)
[2018-08-17] MEDS: Warfarin Sodium 3 MG TAB PO SCH (17:21)
[2018-08-17] MEDS: Atorvastatin Calcium 10 MG TAB PO SCH (20:43)
[2018-08-17] MEDS: Amlodipine 5 MG TAB PO SCH (20:44)
[2018-08-17] MEDS: rOPINIRole HCl 2 MG TAB PO SCH (20:44)
[2018-08-17] MEDS: Famotidine 20 MG TAB PO SCH (20:44)
[2018-08-18 05:38] LABS: INR-International Normal Ratio 2.5; Prothrombin Time 27.2 SEC (12.0-14.7)
[2018-08-18 06:28] VITALS: TEMP 97.5
[2018-08-18] MEDS: Acetaminophen 325 MG TAB PO SCH (09:38)
[2018-08-18] MEDS: Carvedilol 12.5 MG TAB PO SCH (09:38)
[2018-08-18] MEDS: metFORMIN 500 MG TAB PO SCH (09:38)
[2018-08-18] MEDS: Hydrochlorothiazide 25 MG TAB PO SCH (09:38)
[2018-08-18] MEDS: Pioglitazone HCl 15 MG TAB PO SCH (09:38)
[2018-08-18] MEDS: Lisinopril 20 MG TAB PO SCH (09:38)
[2018-08-18] MEDS: Polyethylene Glycol 3350 17 GM Packet PO SCH (09:38)
[2018-08-18] MEDS: Aspirin Chewable 81 MG TAB PO SCH (09:38)
[2018-08-18] MEDS: Warfarin Sodium 3 MG TAB PO SCH (17:40)
[2018-08-18 18:26] VITALS: BP 163/72
--- NOTE | 2018-08-18 21:59 | DIS ---
DATE OF ADMISSION: 07/31/2018 DATE OF DISCHARGE: 08/18/2018 ADMISSION DIAGNOSES: 1. Acute L1 lumbar compression fracture 2. Subacute L2 lumbar compression fracture status post vertebroplasty. 3. Intractable pain. 4. Type 2 diabetes. 5. Hypertension. 6. Atrial fibrillation, on anticoagulation. DISCHARGE DIAGNOSES: 1. Acute L1 lumbar compression fracture 2. Subacute L2 lumbar compression fracture, status post vertebroplasty. 3. Intractable pain. 4. Type 2 diabetes. 5. Hypertension. 6. Atrial fibrillation, on anticoagulation. HISTORY AND PHYSICAL: Please see scanned H and P update from the day of admission. SENIOR CARE COURSE: Ms. Jha was transferred to us from [facility] after another brief stay there for intractable pain. The patient underwent additional scanning that showed suspicion of extension of L1 compression fracture and the subacute L2 compression fracture that had previously been treated by Dr. Gallegos with vertebroplasty. She was placed in rehab and continued in a TLSO brace. Physical and occupational therapy worked with her daily. Her pain became more tolerable throughout her admission. During her hospital stay in [place], it was determined that the patient was having nausea with tramadol, so this was discontinued and hydrocodone given in its place. She seemed to tolerate that well. During her stay here, her fentanyl patch was titrated up to 25 mcg, which helped to better relieve her pain. On the week of her transfer home, she saw Dr. Gallegos, who has ordered additional imaging of a nuclear medicine bone scan that is scheduled on August 28 to determine the acute areas that are not completely 100% convincing findings on the CT studies. Ms. Jha has a history of atrial fibrillation, but was regular rate and rhythm throughout her hospital stay. However, her INR was subtherapeutic and her warfarin dose was adjusted to 3 mg daily, which brought her INR up to goal and it has maintained in that range for several days at the time of her discharge. She will be discharged on this dose and will have a PT/INR drawn by home health in approximately 1 week. The patient has a history of hypertension, but has been well controlled throughout her hospitalization without medication adjustment. The patient has history of type 2 diabetes, but this has been well controlled throughout her hospitalization on her home regimen. Of note, the patient believes that she possibly sustained a left lower costal margin rib fracture during rolling for transfer during her hospital stay. However, no imaging of the ribs was performed secondary to Dr. Gallegos evaluating this and determining that this would show up on her bone scan whenever she has it performed. I did order incentive spirometry to be used 10 times on the hour while awake and she will continue this at home. DISPOSITION: 1. Transfer to home with home health for PT and OT. MEDICATIONS: 1. Norvasc 5 mg p.o. nightly. 2. Tylenol 650 mg p.o. b.i.d. 3. Carvedilol 12.5 mg p.o. b.i.d. 4. Aspirin 81 mg p.o. daily. 5. Zestril 20 mg p.o. daily. 6. Hydrochlorothiazide 25 mg p.o. daily. 7. Vitamin D 2000 units p.o. at bedtime. 8. Polyethylene glycol/MiraLax 17 g p.o. daily. 9. Pioglitazone/metformin 15/500 one p.o. daily. 10. Loperamide 2 mg p.o. as directed p.r.n. 11. Zocor 20 mg p.o. at bedtime. 12. Ranitidine 150 mg p.o. at bedtime. 13. Tamsulosin 0.4 mg p.o. daily p.r.n. 14. Ropinirole 1 mg p.o. at bedtime. 15. Duragesic (fentanyl patch) 25 mcg transdermally q.3 days. 16. Warfarin 3 mg daily at 1700. 17. Zofran ODT 4 mg p.o. q.6 hours p.r.n. 18. [place] one p.o. q.6 hours p.r.n. 19. Of note, the patient is to discontinue tramadol that she has at home. FOLLOWUP: Followup will be with me, Dr. Eaton, in approximately [address] Gallegos as scheduled for her bone scan and office followup. Job ID: [id number] [facility]
== END 2018-08-18 18:30 | disposition home health service (06) | DRG 561 ==
LOC: BURMED 14:30
PROVIDERS: ADMIT Family Medicine; ATTEND Family Medicine
DX: M48.56XD Collapsed vertebra, not elsewhere classified, lumbar region, subsequent encounter for fracture with routine healing (principal); E11.9 Type 2 diabetes mellitus without complications; I10 Essential (primary) hypertension; I48.91 Unspecified atrial fibrillation; R79.1 Abnormal coagulation profile; Z79.01 Long term (current) use of anticoagulants; X58.XXXD Exposure to other specified factors, subsequent encounter
CPT/HCPCS: 36415; 36416; 85014; 85018; 85049; 85610; Q0162

== ENCOUNTER 2018-09-07 09:54 | Outpatient (CLI) | payer MEDICARE ==
--- NOTE | 2018-09-07 15:44 | CT ---
NONCONTRAST CT THORACIC SPINE: DATE: 09/07/2018. HISTORY: Recent bone scan on 08/28/2018 demonstrated thoracic vertebral body compression. This examination is for followup evaluation of a compression fracture of a lower thoracic vertebral body. COMPARISON: Bone scan on 08/28/[address] thoracic spine on 07/28/2018. FINDINGS: There are small bilateral pleural effusions and associated passive atelectasis greater on the right. Increased interstitial densities are seen within the visualized lungs greater peripherally with mini mal scattered ground-glass densities, this exam is obtained in expiratory phase of imaging and findin gs are probably related to volume loss. Vascular calcifications are seen in the thoracic aorta as well as the visualized coronary arteries. Partial visualization of cardiac pacemaking leads are present. There is incomplete visualization of a hypodense lesion at the superior pole right kidney also partia lly visualized on prior study. There was a hypodense cystic lesion seen in this region on a prior CT abdomen in 2016, this likely represents a renal cyst. Vascular calcifications are seen in the abdominal aorta. Paravertebral soft tissues are within normal limits. As noted on prior CT of thoracic spine as well as CT lumbar spine on 07/28/2018, there are vertebroplas ty changes involving compression fractures of the L1 and L2 vertebral bodies with stable degree of he ight loss present. The slight burst-type fracture involving the T11 vertebral body is again seen wit h a stable degree of retropulsion of the posterior superior end plate as well as stable height loss o f the T11 vertebral body. There is a compression fracture seen involving the T10 vertebral body with sclerosis present within t he vertebral body. There is a suggestion of trace retrolisthesis of the posterior superior end plate of this vertebral body suggesting a minimal burst-type fracture with only slight effacement of the v entral subarachnoid space. There is approximately 30-40% loss of vertebral body height. This compre ssion fracture does correlate with findings on the bone scan which demonstrated increased uptake with in the T11 vertebral body and is most consistent with acute to subacute burst-type fracture. The rem aining vertebral body heights of the thoracic spine appear to be within normal limits. There are sca ttered degenerative changes seen throughout the lumbar spine. The central spinal canal and neural fo ramen at the remaining levels of the thoracic spine are patent. There is vacuum phenomenon seen in the T9-10 intervertebral disk. Mild neural foraminal narrowing is present at the T11-12 level due to the more remote burst-type fracture and there is moderate bilater al neural foraminal narrowing at the T10-11 level due to bony encroachment. IMPRESSION: 1. Acute to subacute burst fracture involving the T10 vertebral body with 30-40% loss of height, Th is correlates with findings on the recent bone scan on 08/28/2018. 2. Stable height loss of a burst-type fracture involving the T11 vertebral body. 3. Stable vertebroplasty changes of burst fractures involving the L1 and L2 vertebral bodies. 4. Small bilateral pleural effusions and atelectasis as well as findings likely attributable to chronometer repairer rajendra interstitial lung changes. POS: [facility]IRA
== END 2018-09-07 09:55 | disposition home or self-care (01) ==
LOC: BURCT 09:54
PROVIDERS: ATTEND Anesthesiology Pain Medicine
DX: S22.071D Stable burst fracture of T9-T10 vertebra, subsequent encounter for fracture with routine healing (principal); S22.081D Stable burst fracture of T11-T12 vertebra, subsequent encounter for fracture with routine healing; S32.011D Stable burst fracture of first lumbar vertebra, subsequent encounter for fracture with routine healing; S32.021D Stable burst fracture of second lumbar vertebra, subsequent encounter for fracture with routine healing; J90 Pleural effusion, not elsewhere classified; J98.11 Atelectasis; Z98.890 Other specified postprocedural states
CPT/HCPCS: 72128

== ENCOUNTER 2018-10-05 12:57 | Inpatient (IN) | payer MEDICARE ==
[2018-10-05] MEDS ORDERED: Loperamide HCl 2 MG CAP PO PRN (17:29)
[2018-10-05] MEDS ORDERED: HumaLOG 300 UNITS/3 ML VIAL SC PRN ×2 (17:57)
[2018-10-05] MEDS ORDERED: Dextrose 5% in Water 1,000 ML IV PRN (17:57)
[2018-10-05] MEDS ORDERED: Dextrose 50% Abboject 50 ML SYRINGE SLOW IVP PRN (17:57)
[2018-10-05] MEDS: Warfarin Sodium 3 MG TAB PO SCH (18:30)
[2018-10-05] MEDS: rOPINIRole HCl 2 MG TAB PO SCH (20:52)
[2018-10-05] MEDS: Pioglitazone HCl 15 MG TAB PO SCH (20:55)
[2018-10-05] MEDS: metFORMIN 500 MG TAB PO SCH (20:55)
[2018-10-05] MEDS: Amlodipine 5 MG TAB PO SCH (20:56)
[2018-10-05] MEDS: Acetaminophen 325 MG TAB PO SCH (20:57)
[2018-10-05] MEDS: Famotidine 20 MG TAB PO SCH (20:58)
[2018-10-05] MEDS: Simvastatin 40 MG TAB PO SCH (20:58)
[2018-10-05] MEDS: Carvedilol 12.5 MG TAB PO SCH (20:59)
[2018-10-05] MEDS: Aspirin Chewable 81 MG TAB PO SCH (20:59)
[2018-10-05] MEDS ORDERED: PIOGLITAZONE HCL PO SCH (21:00)
[2018-10-05] MEDS ORDERED: [UNRECOGNIZED DRUG - OTHER] PO SCH (21:00)
[2018-10-05] MEDS ORDERED: METFORMIN HCL PO SCH (21:00)
--- NOTE | 2018-10-06 01:02 | HP ---
CHIEF COMPLAINT: Need for skilled rehabilitation. HISTORY OF PRESENT ILLNESS: Ms. Jha is an 83-year-old female, with a past medical history of lumbar compression fracture, L1, L2, and most recently L3, chronic low back pain, paroxysmal atrial fibrillation, hypertension, hyperlipidemia, type 2 diabetes, and osteoporosis, who presents for skilled rehabilitation, physical and occupational therapy following a balloon kyphoplasty on October 04, 2018, by Dr. Matta. The patient arrived in a TLSO brace, which is to be continued. She will have her pain regimen optimized while here and our goal is to strengthen the patient so she can return home with either outpatient physical and occupational therapy or home health with PT and OT. She has had multiple hospitalizations in the last 6 months starting back in March when she sustained an L2 compression fracture. She had subsequent vertebroplasty at L1-L2 in May. PAST MEDICAL HISTORY: 1. Hypertension. 2. Type 2 diabetes. 3. Hyperlipidemia. 4. Paroxysmal atrial fibrillation, on anticoagulation chronically. 5. History of a CVA. 6. Vision deficit on the right. 7. Osteoporosis. 8. Chronic low back pain. 9. Chronic kidney disease stage 2. 10. Multiple lumbar compressions fractures. PAST SURGICAL HISTORY: 1. Cholecystectomy. 2. Tonsillectomy. 3. Pacemaker. 4. Vertebroplasty at L1-L2. 5. L3 kyphoplasty, October 04, 2018. SOCIAL HISTORY: No illicit drugs, alcohol, tobacco use. The patient is and lives at home with her . FAMILY HISTORY: Noncontributory to this case. ALLERGIES: NO KNOWN DRUG ALLERGIES. CURRENT MEDICATIONS: 1. Zofran 4 mg p.o. q.6 hours p.r.n. 2. [place] 5/325 one p.o. q.6 hours p.r.n. 3. Fentanyl patch 25 mcg every 3 days. 4. Simvastatin 20 mg p.o. at bedtime. 5. Ropinirole 1 mg at bedtime. 6. Ranitidine 150 mg at bedtime. 7. Actos and metformin 15/500 p.o. at bedtime. 8. Loperamide 2 mg for loose stool as directed. 9. Lisinopril 20 mg p.o. daily. 10. Hydrochlorothiazide 25 mg p.o. daily. 11. Vitamin D3 2000 units at bedtime. 12. Carvedilol 12.5 mg p.o. b.i.d. 13. Aspirin 81 mg p.o. daily. 14. Amlodipine 5 mg p.o. q.p.m. 15. Tylenol 650 mg p.o. b.i.d. REVIEW OF SYSTEMS: GENERAL: The patient denies fever. Positive weakness of left lower extremity greater than right lower extremity with deconditioning from recent hospital stays. Using a TLSO brace. EYES: She has peripheral vision loss with that being worse on the left. HEENT: Denies sore throat, ear pain. No hearing deficit known. CARDIOVASCULAR: Denies chest pain, orthopnea, PND, or palpitations. RESPIRATORY: Denies shortness of breath, cough, or hemoptysis. GASTROINTESTINAL: Denies nausea, vomiting, constipation with last bowel movement this morning, diarrhea, melena, hematochezia. GENITOURINARY: Denies dysuria or gross hematuria. LYMPHATIC: Denies edema. HEMATOLOGIC: Denies any recent bleeding. PSYCHIATRIC: Denies any past psychiatric history. PHYSICAL EXAMINATION: VITAL SIGNS: Temperature 97.4, pulse 60, respirations 20, blood pressure 123/58 , O2 saturation 94% on room air. GENERAL: Well-developed female in no acute distress. Alert and oriented x3 with TLSO brace in place. Lying supine in bed. No acute distress. HEENT: Wears corrective lenses. Pupils equally round, reactive to light and accommodation, extraocular muscles intact. Nares are patent without discharge. Tongue protrudes in the midline. NECK: Supple without lymphadenopathy, thyromegaly, JVD, or bruit. HEART: Regular rate and rhythm. Normal S1, S2. No murmurs, clicks, rubs, or gallops. LUNGS: Clear to auscultation with good air entry bilaterally. No crackles or wheezes. ABDOMEN: Positive bowel sounds in all 4 quadrants. Soft, nontender, nondistended. No masses, guarding, or rebound tenderness. NEUROLOGICAL: Cranial nerves 2 through 12 grossly intact without focal deficits with generalized weakness of the extremities. SKIN: Puncture wound at lower thoracic on the left and to the midline of the lumbar region without surrounding erythema, induration, or drainage. Dressing was changed during examination. TLSO brace was removed and replaced. PSYCHIATRIC: Normal speech without tangential thoughts. Pleasant. LABORATORY DATA: Most recent H and H 9.5 and 29.1, platelets 155. IMAGING STUDIES: CT scan of lumbar spine showing interval partial compression at L3 estimated at 50%. No retropulsion. Vertebroplasty at the L1-L2 levels were stable. ASSESSMENT AND PLAN: 1. L3 compression fracture, status post balloon kyphoplasty, October 04, 2018, postop day #1. The patient will be admitted to our skilled unit for rehabilitation to include fdc, physical and occupational therapy. We will continue the TLSO brace until otherwise directed by Neurosurgery/Pain Management. Her pain regimen will be continued and optimized during her stay. 2. L1-L2 compression fracture status post vertebroplasty. The patient was on miacalcin in the past and completed treatment. 3. Paroxysmal atrial fibrillation. We will resume the patient's warfarin at 3 mg daily which was her previous dose with the anticoagulation protocol for lab monitoring with goal INR of 2 to 3 and Pharmacy to manage and adjust. 4. Hypertension. The patient's goal blood pressure will be less than 140/90. We will continue her current antihypertensive regimen. For now, they recommended holding hydrochlorothiazide and we can resume that should her blood pressure increase she develop dependent edema. 5. Hyperlipidemia. The patient will be continued on her statin therapy. 6. Type 2 diabetes. The patient will be given an ADA diet with her current home regimen with Accu-Cheks before meals and at bedtime with a mild and bedtime correction algorithm with lispro. 7. Chronic kidney disease, stage 2. The patient will be having a BUN and creatinine monitored periodically. 8. Osteoporosis. The patient will be continued on vitamin D and calcium as tolerated. 9. Prophylaxis. The patient is on Pepcid and warfarin. 10. Code status. The patient desires to be a do not attempt resuscitation status. Job ID: [id number] [facility]
[2018-10-06] MEDS: HYDROcodone/Acetaminophen 5/325 mg Tablet PO PRN ×2 (07:30→13:41)
[2018-10-06] MEDS: Acetaminophen 325 MG TAB PO SCH ×2 (08:49→21:03)
[2018-10-06] MEDS: Carvedilol 12.5 MG TAB PO SCH ×2 (08:50→21:05)
[2018-10-06] MEDS: Lisinopril 20 MG TAB PO SCH (08:50)
[2018-10-06] MEDS: Warfarin Sodium 3 MG TAB PO SCH (18:13)
[2018-10-06] MEDS: Simvastatin 40 MG TAB PO SCH (21:03)
[2018-10-06] MEDS: rOPINIRole HCl 2 MG TAB PO SCH (21:03)
[2018-10-06] MEDS: Amlodipine 5 MG TAB PO SCH (21:03)
[2018-10-06] MEDS: Famotidine 20 MG TAB PO SCH (21:04)
[2018-10-06] MEDS: metFORMIN 500 MG TAB PO SCH (21:04)
[2018-10-06] MEDS: Pioglitazone HCl 15 MG TAB PO SCH (21:04)
[2018-10-06] MEDS: Aspirin Chewable 81 MG TAB PO SCH (21:05)
[2018-10-07] MEDS: HYDROcodone/Acetaminophen 5/325 mg Tablet PO PRN ×3 (04:40→17:19)
[2018-10-07 04:54] LABS: Hemoglobin 8.4 g/dL (12.0-16.0); Platelet Count 138 thou/uL (130-400)
[2018-10-07 05:06] LABS: INR-International Normal Ratio 1.3; Prothrombin Time 16.1 SEC (12.0-14.7)
[2018-10-07] MEDS: Lisinopril 20 MG TAB PO SCH (08:56)
[2018-10-07] MEDS: Acetaminophen 325 MG TAB PO SCH ×2 (08:57→20:14)
[2018-10-07] MEDS: Carvedilol 12.5 MG TAB PO SCH ×2 (08:57→20:16)
[2018-10-07] MEDS: Warfarin Sodium 3 MG TAB PO SCH (17:18)
[2018-10-07] MEDS: metFORMIN 500 MG TAB PO SCH (20:15)
[2018-10-07] MEDS: Aspirin Chewable 81 MG TAB PO SCH (20:15)
[2018-10-07] MEDS: Pioglitazone HCl 15 MG TAB PO SCH (20:16)
[2018-10-07] MEDS: Simvastatin 40 MG TAB PO SCH (20:16)
[2018-10-07] MEDS: Famotidine 20 MG TAB PO SCH (20:17)
[2018-10-07] MEDS: Amlodipine 5 MG TAB PO SCH (20:17)
[2018-10-07] MEDS: rOPINIRole HCl 2 MG TAB PO SCH (20:17)
[2018-10-08] MEDS: HYDROcodone/Acetaminophen 5/325 mg Tablet PO PRN ×3 (00:59→20:21)
[2018-10-08] MEDS: Ondansetron ODT 4 MG TAB PO PRN (03:41)
[2018-10-08] MEDS: Lisinopril 20 MG TAB PO SCH (08:50)
[2018-10-08] MEDS: Carvedilol 12.5 MG TAB PO SCH ×2 (08:52→20:22)
[2018-10-08] MEDS: Acetaminophen 325 MG TAB PO SCH (08:55)
[2018-10-08] MEDS ORDERED: Polyethylene Glycol 3350 17 GM Packet PO PRN (09:48)
[2018-10-08] MEDS: Docusate 100 MG CAP PO SCH ×2 (11:11→20:23)
[2018-10-08 11:49] LABS: INR-International Normal Ratio 1.5
[2018-10-08] MEDS ORDERED: tiZANidine HCl 4 MG TAB PO SCH ×2 (12:30)
[2018-10-08] MEDS: Warfarin Sodium 5 MG TAB PO SCH (17:46)
[2018-10-08] MEDS: metFORMIN 500 MG TAB PO SCH (20:21)
[2018-10-08] MEDS: Famotidine 20 MG TAB PO SCH (20:21)
[2018-10-08] MEDS: rOPINIRole HCl 2 MG TAB PO SCH (20:22)
[2018-10-08] MEDS: Simvastatin 40 MG TAB PO SCH (20:22)
[2018-10-08] MEDS: Aspirin Chewable 81 MG TAB PO SCH (20:23)
[2018-10-08] MEDS: Pioglitazone HCl 15 MG TAB PO SCH (20:23)
[2018-10-08] MEDS: Amlodipine 5 MG TAB PO SCH (20:23)
[2018-10-09] MEDS: HYDROcodone/Acetaminophen 5/325 mg Tablet PO PRN ×3 (04:31→15:56)
[2018-10-09 05:26] LABS: INR-International Normal Ratio 1.7; Prothrombin Time 20.3 SEC (12.0-14.7)
[2018-10-09 05:34] LABS: Hemoglobin 9.1 g/dL (12.0-16.0); Platelet Count 171 thou/uL (130-400)
[2018-10-09] MEDS: Lisinopril 20 MG TAB PO SCH (09:10)
[2018-10-09] MEDS: Carvedilol 12.5 MG TAB PO SCH ×2 (09:10→20:04)
[2018-10-09] MEDS: Docusate 100 MG CAP PO SCH (09:11)
[2018-10-09] MEDS ORDERED: tiZANidine HCl 4 MG TAB PO PRN ×2 (09:20→12:31)
[2018-10-09] MEDS ORDERED: Acetaminophen ER (8hr) 650 MG TAB PO SCH (09:30)
[2018-10-09] MEDS: Senokot S 8.6-50 MG TAB PO SCH ×2 (09:58→21:09)
[2018-10-09] MEDS: Polyethylene Glycol 3350 17 GM Packet PO SCH (09:58)
[2018-10-09] MEDS ORDERED: HumaLOG 300 UNITS/3 ML VIAL SC PRN (10:00)
[2018-10-09] MEDS: Warfarin Sodium 5 MG TAB PO SCH (17:45)
[2018-10-09] MEDS: Famotidine 20 MG TAB PO SCH (20:03)
[2018-10-09] MEDS: Amlodipine 5 MG TAB PO SCH (20:03)
[2018-10-09] MEDS: rOPINIRole HCl 2 MG TAB PO SCH (20:03)
[2018-10-09] MEDS: metFORMIN 500 MG TAB PO SCH (20:03)
[2018-10-09] MEDS: Simvastatin 40 MG TAB PO SCH (20:04)
[2018-10-09] MEDS: Aspirin Chewable 81 MG TAB PO SCH (20:04)
[2018-10-09] MEDS: Pioglitazone HCl 15 MG TAB PO SCH (21:09)
[2018-10-10] MEDS: HYDROcodone/Acetaminophen 5/325 mg Tablet PO PRN ×2 (04:27→12:11)
[2018-10-10] MEDS ORDERED: HumaLOG 300 UNITS/3 ML VIAL SC PRN (06:00)
[2018-10-10 06:01] LABS: INR-International Normal Ratio 2.7; Prothrombin Time 28.7 SEC (12.0-14.7)
[2018-10-10] MEDS: Polyethylene Glycol 3350 17 GM Packet PO SCH (08:39)
[2018-10-10] MEDS: Lisinopril 20 MG TAB PO SCH (08:39)
[2018-10-10] MEDS: Carvedilol 12.5 MG TAB PO SCH (08:42)
[2018-10-10] MEDS: Senokot S 8.6-50 MG TAB PO SCH (08:42)
[2018-10-10] MEDS ORDERED: HYDROcodone/Acetaminophen 5/325 mg Tablet ONE (18:23)
[2018-10-10] MEDS ORDERED: Warfarin Sodium 2 MG TAB PO ONE (18:25)
[2018-10-10] MEDS ORDERED: HYDROcodone/Acetaminophen 5/325 mg Tablet PO ONE (18:25)
[2018-10-11] MEDS ORDERED: HYDROcodone/Acetaminophen 5/325 mg Tablet ONE (06:49)
[2018-10-11] MEDS ORDERED: HYDROcodone/Acetaminophen 5/325 mg Tablet PO ONE ×3 (06:50→22:10)
[2018-10-11] MEDS ORDERED: Lisinopril 20 MG TAB PO ONE (09:00)
[2018-10-11] MEDS ORDERED: Carvedilol 12.5 MG TAB PO ONE ×2 (09:00→20:55)
[2018-10-11] MEDS: Lisinopril 20 MG TAB PO SCH (15:22)
[2018-10-11] MEDS ORDERED: Warfarin Sodium 2 MG TAB PO ONE (17:00)
[2018-10-11] MEDS ORDERED: Amlodipine 5 MG TAB ONE (20:52)
[2018-10-11] MEDS ORDERED: Famotidine 20 MG TAB PO ONE (20:55)
[2018-10-11] MEDS ORDERED: rOPINIRole HCl 2 MG TAB PO ONE (20:55)
[2018-10-11] MEDS ORDERED: Aspirin Chewable 81 MG TAB PO ONE (20:55)
[2018-10-11] MEDS ORDERED: Pioglitazone HCl 15 MG TAB PO ONE (20:55)
[2018-10-11] MEDS ORDERED: metFORMIN 500 MG TAB PO ONE (20:55)
[2018-10-11] MEDS ORDERED: Simvastatin 40 MG TAB PO ONE (20:55)
[2018-10-11] MEDS ORDERED: Amlodipine 5 MG TAB PO ONE (20:55)
[2018-10-11] MEDS: Amlodipine 5 MG TAB PO SCH (21:00)
[2018-10-12] MEDS: HYDROcodone/Acetaminophen 5/325 mg Tablet PO PRN (04:31)
[2018-10-12] MEDS: Senokot S 8.6-50 MG TAB PO SCH ×4 (08:43→21:31)
[2018-10-12] MEDS: Lisinopril 20 MG TAB PO SCH (08:44)
[2018-10-12] MEDS: Polyethylene Glycol 3350 17 GM Packet PO SCH ×2 (08:44→15:22)
[2018-10-12] MEDS: Carvedilol 12.5 MG TAB PO SCH ×4 (08:47→21:30)
[2018-10-12 12:04] LABS: Hemoglobin 8.6 g/dL (12.0-16.0); Platelet Count 171 thou/uL (130-400); Prothrombin Time 31.1 SEC (12.0-14.7)
[2018-10-12 13:13] LABS: Prothrombin Time 34.9 SEC (12.0-14.7)
[2018-10-12 13:14] LABS: INR-International Normal Ratio 3.5
[2018-10-12] MEDS: HYDROcodone/Acetaminophen 5/325 mg Tablet ONE ×2 (13:56→15:23)
[2018-10-12] MEDS: Aspirin Chewable 81 MG TAB PO SCH ×3 (15:19→21:30)
[2018-10-12] MEDS: Famotidine 20 MG TAB PO SCH ×3 (15:20→21:30)
[2018-10-12] MEDS: metFORMIN 500 MG TAB PO SCH ×3 (15:21→21:30)
[2018-10-12] MEDS: Pioglitazone HCl 15 MG TAB PO SCH ×3 (15:21→21:30)
[2018-10-12] MEDS: rOPINIRole HCl 2 MG TAB PO SCH ×3 (15:21→21:30)
[2018-10-12] MEDS: Simvastatin 40 MG TAB PO SCH ×3 (15:22→21:31)
[2018-10-12] MEDS: Warfarin Sodium 2 MG TAB PO SCH ×2 (15:25→21:40)
[2018-10-12] MEDS: Amlodipine 5 MG TAB PO SCH ×2 (21:25→21:29)
[2018-10-13] MEDS: Acetaminophen 500 MG TAB PO PRN (04:25)
[2018-10-13 05:40] LABS: Platelet Count 170 thou/uL (130-400)
[2018-10-13 05:47] LABS: INR-International Normal Ratio 3.2; Prothrombin Time 32.6 SEC (12.0-14.7)
[2018-10-13] MEDS: Lisinopril 20 MG TAB PO SCH (09:04)
[2018-10-13] MEDS: Carvedilol 12.5 MG TAB PO SCH ×2 (09:04→20:22)
[2018-10-13] MEDS: Polyethylene Glycol 3350 17 GM Packet PO SCH (09:48)
[2018-10-13] MEDS: Senokot S 8.6-50 MG TAB PO SCH ×2 (09:48→20:22)
[2018-10-13] MEDS: HYDROcodone/Acetaminophen 5/325 mg Tablet PO PRN ×2 (11:41→21:34)
[2018-10-13] MEDS ORDERED: Warfarin Sodium 3 MG TAB PO SCH (17:00)
[2018-10-13] MEDS: Simvastatin 40 MG TAB PO SCH (20:21)
[2018-10-13] MEDS: rOPINIRole HCl 2 MG TAB PO SCH (20:21)
[2018-10-13] MEDS: Aspirin Chewable 81 MG TAB PO SCH (20:21)
[2018-10-13] MEDS: Famotidine 20 MG TAB PO SCH (20:22)
[2018-10-13] MEDS: metFORMIN 500 MG TAB PO SCH (20:22)
[2018-10-13] MEDS: Amlodipine 5 MG TAB PO SCH (20:22)
[2018-10-13] MEDS: Pioglitazone HCl 15 MG TAB PO SCH (20:23)
[2018-10-14] MEDS: HYDROcodone/Acetaminophen 5/325 mg Tablet PO PRN ×2 (03:01→20:55)
[2018-10-14 06:00] LABS: Prothrombin Time 29.7 SEC (12.0-14.7)
[2018-10-14 06:01] LABS: INR-International Normal Ratio 2.8
[2018-10-14] MEDS: Carvedilol 12.5 MG TAB PO SCH ×2 (08:49→20:57)
[2018-10-14] MEDS: Senokot S 8.6-50 MG TAB PO SCH ×2 (08:49→20:59)
[2018-10-14] MEDS: Polyethylene Glycol 3350 17 GM Packet PO SCH (08:49)
[2018-10-14] MEDS: Lisinopril 20 MG TAB PO SCH (08:50)
[2018-10-14] MEDS: Pioglitazone HCl 15 MG TAB PO SCH (20:55)
[2018-10-14] MEDS: rOPINIRole HCl 2 MG TAB PO SCH (20:55)
[2018-10-14] MEDS: Aspirin Chewable 81 MG TAB PO SCH (20:56)
[2018-10-14] MEDS: Amlodipine 5 MG TAB PO SCH (20:56)
[2018-10-14] MEDS: Famotidine 20 MG TAB PO SCH (20:57)
[2018-10-14] MEDS: metFORMIN 500 MG TAB PO SCH (20:58)
[2018-10-14] MEDS: Simvastatin 40 MG TAB PO SCH (20:58)
[2018-10-15] MEDS: HYDROcodone/Acetaminophen 5/325 mg Tablet PO PRN (03:55)
[2018-10-15 05:25] LABS: Hemoglobin 8.4 g/dL (12.0-16.0); Platelet Count 182 thou/uL (130-400)
[2018-10-15 05:31] LABS: INR-International Normal Ratio 2.5; Prothrombin Time 26.8 SEC (12.0-14.7)
[2018-10-15] MEDS: Senokot S 8.6-50 MG TAB PO SCH ×2 (09:18→20:40)
[2018-10-15] MEDS: Lisinopril 20 MG TAB PO SCH (09:19)
[2018-10-15] MEDS: Carvedilol 12.5 MG TAB PO SCH ×2 (09:19→20:40)
[2018-10-15] MEDS: Polyethylene Glycol 3350 17 GM Packet PO SCH (09:19)
[2018-10-15] MEDS ORDERED: Warfarin Sodium 3 MG TAB PO SCH (17:00)
[2018-10-15] MEDS: rOPINIRole HCl 2 MG TAB PO SCH (20:38)
[2018-10-15] MEDS: Simvastatin 40 MG TAB PO SCH (20:38)
[2018-10-15] MEDS: metFORMIN 500 MG TAB PO SCH (20:39)
[2018-10-15] MEDS: Aspirin Chewable 81 MG TAB PO SCH (20:39)
[2018-10-15] MEDS: Pioglitazone HCl 15 MG TAB PO SCH (20:39)
[2018-10-15] MEDS: Amlodipine 5 MG TAB PO SCH (20:40)
[2018-10-15] MEDS: Famotidine 20 MG TAB PO SCH (20:40)
[2018-10-16] MEDS: HYDROcodone/Acetaminophen 5/325 mg Tablet PO PRN (06:43)
[2018-10-16] MEDS: Senokot S 8.6-50 MG TAB PO SCH ×2 (09:36→20:36)
[2018-10-16] MEDS: Polyethylene Glycol 3350 17 GM Packet PO SCH (09:36)
[2018-10-16] MEDS: Lisinopril 20 MG TAB PO SCH (09:37)
[2018-10-16] MEDS: Carvedilol 12.5 MG TAB PO SCH ×2 (09:37→20:36)
[2018-10-16] MEDS: rOPINIRole HCl 2 MG TAB PO SCH (20:31)
[2018-10-16] MEDS: Pioglitazone HCl 15 MG TAB PO SCH (20:31)
[2018-10-16] MEDS: Aspirin Chewable 81 MG TAB PO SCH (20:32)
[2018-10-16] MEDS: Simvastatin 40 MG TAB PO SCH (20:34)
[2018-10-16] MEDS: metFORMIN 500 MG TAB PO SCH (20:35)
[2018-10-16] MEDS: Famotidine 20 MG TAB PO SCH (20:35)
[2018-10-16] MEDS: Amlodipine 5 MG TAB PO SCH (20:40)
[2018-10-17] MEDS: HYDROcodone/Acetaminophen 5/325 mg Tablet PO PRN (05:48)
[2018-10-17] MEDS: Lisinopril 20 MG TAB PO SCH (08:48)
[2018-10-17] MEDS: Polyethylene Glycol 3350 17 GM Packet PO SCH (08:48)
[2018-10-17] MEDS: Carvedilol 12.5 MG TAB PO SCH ×2 (08:48→20:31)
[2018-10-17] MEDS: Senokot S 8.6-50 MG TAB PO SCH ×2 (08:48→20:29)
[2018-10-17] MEDS: Pioglitazone HCl 15 MG TAB PO SCH (20:29)
[2018-10-17] MEDS: metFORMIN 500 MG TAB PO SCH (20:29)
[2018-10-17] MEDS: Simvastatin 40 MG TAB PO SCH (20:30)
[2018-10-17] MEDS: rOPINIRole HCl 2 MG TAB PO SCH (20:32)
[2018-10-17] MEDS: Famotidine 20 MG TAB PO SCH (20:33)
[2018-10-17] MEDS: Amlodipine 5 MG TAB PO SCH (20:33)
[2018-10-17] MEDS: Aspirin Chewable 81 MG TAB PO SCH (20:33)
[2018-10-18] MEDS: HYDROcodone/Acetaminophen 5/325 mg Tablet PO PRN (05:46)
[2018-10-18] MEDS: Polyethylene Glycol 3350 17 GM Packet PO SCH (09:00)
[2018-10-18] MEDS: Senokot S 8.6-50 MG TAB PO SCH ×2 (09:00→21:06)
[2018-10-18] MEDS: Lisinopril 20 MG TAB PO SCH (09:01)
[2018-10-18] MEDS: Carvedilol 12.5 MG TAB PO SCH ×2 (09:05→21:06)
[2018-10-18] MEDS: Amlodipine 5 MG TAB PO SCH (21:06)
[2018-10-18] MEDS: rOPINIRole HCl 2 MG TAB PO SCH (21:06)
[2018-10-18] MEDS: Pioglitazone HCl 15 MG TAB PO SCH (21:06)
[2018-10-18] MEDS: metFORMIN 500 MG TAB PO SCH (21:06)
[2018-10-18] MEDS: Famotidine 20 MG TAB PO SCH (21:06)
[2018-10-18] MEDS: Simvastatin 40 MG TAB PO SCH (21:07)
[2018-10-18] MEDS: Aspirin Chewable 81 MG TAB PO SCH (21:07)
[2018-10-19] MEDS: HYDROcodone/Acetaminophen 5/325 mg Tablet PO PRN (05:17)
[2018-10-19] MEDS: Senokot S 8.6-50 MG TAB PO SCH ×2 (08:58→21:03)
[2018-10-19] MEDS: Polyethylene Glycol 3350 17 GM Packet PO SCH (08:58)
[2018-10-19] MEDS: Carvedilol 12.5 MG TAB PO SCH ×2 (09:01→21:01)
[2018-10-19] MEDS: Lisinopril 20 MG TAB PO SCH (09:01)
[2018-10-19] MEDS ORDERED: Proctozone-HC 2.5% Cream 30 GM TUBE TOP PRN (09:19)
[2018-10-19] MEDS: metFORMIN 500 MG TAB PO SCH (21:01)
[2018-10-19] MEDS: Aspirin Chewable 81 MG TAB PO SCH (21:01)
[2018-10-19] MEDS: Pioglitazone HCl 15 MG TAB PO SCH (21:01)
[2018-10-19] MEDS: rOPINIRole HCl 2 MG TAB PO SCH (21:02)
[2018-10-19] MEDS: Amlodipine 5 MG TAB PO SCH (21:02)
[2018-10-19] MEDS: Famotidine 20 MG TAB PO SCH (21:03)
[2018-10-19] MEDS: Simvastatin 40 MG TAB PO SCH (21:03)
[2018-10-20] MEDS: HYDROcodone/Acetaminophen 5/325 mg Tablet PO PRN (03:44)
[2018-10-20] MEDS: Ondansetron ODT 4 MG TAB PO PRN (03:49)
[2018-10-20] MEDS: Lisinopril 20 MG TAB PO SCH (07:54)
[2018-10-20] MEDS: Carvedilol 12.5 MG TAB PO SCH ×2 (07:54→21:12)
[2018-10-20] MEDS: Senokot S 8.6-50 MG TAB PO SCH ×2 (07:56→21:12)
[2018-10-20] MEDS: Polyethylene Glycol 3350 17 GM Packet PO SCH (07:57)
[2018-10-20] MEDS: Pioglitazone HCl 15 MG TAB PO SCH (21:11)
[2018-10-20] MEDS: rOPINIRole HCl 2 MG TAB PO SCH (21:11)
[2018-10-20] MEDS: Famotidine 20 MG TAB PO SCH (21:12)
[2018-10-20] MEDS: Simvastatin 40 MG TAB PO SCH (21:12)
[2018-10-20] MEDS: Amlodipine 5 MG TAB PO SCH (21:12)
[2018-10-20] MEDS: Aspirin Chewable 81 MG TAB PO SCH (21:12)
[2018-10-20] MEDS: metFORMIN 500 MG TAB PO SCH (21:13)
[2018-10-21] MEDS: Lisinopril 20 MG TAB PO SCH (08:46)
[2018-10-21] MEDS: Senokot S 8.6-50 MG TAB PO SCH ×2 (08:47→20:12)
[2018-10-21] MEDS: Carvedilol 12.5 MG TAB PO SCH ×2 (08:47→20:12)
[2018-10-21] MEDS: Polyethylene Glycol 3350 17 GM Packet PO SCH (08:47)
[2018-10-21 15:42] VITALS: BMI 27.1
[2018-10-21] MEDS: Amlodipine 5 MG TAB PO SCH (20:10)
[2018-10-21] MEDS: Famotidine 20 MG TAB PO SCH (20:11)
[2018-10-21] MEDS: Simvastatin 40 MG TAB PO SCH (20:12)
[2018-10-21] MEDS: rOPINIRole HCl 2 MG TAB PO SCH (20:12)
[2018-10-21] MEDS: Aspirin Chewable 81 MG TAB PO SCH (20:12)
[2018-10-21] MEDS: metFORMIN 500 MG TAB PO SCH (20:12)
[2018-10-21] MEDS: Pioglitazone HCl 15 MG TAB PO SCH (20:12)
[2018-10-22] MEDS: HYDROcodone/Acetaminophen 5/325 mg Tablet PO PRN (02:30)
[2018-10-22 05:52] LABS: INR-International Normal Ratio 1.1; Prothrombin Time 13.9 SEC (12.0-14.7)
[2018-10-22] MEDS: Lisinopril 20 MG TAB PO SCH (09:34)
[2018-10-22] MEDS: Carvedilol 12.5 MG TAB PO SCH ×2 (09:34→21:52)
[2018-10-22] MEDS: Polyethylene Glycol 3350 17 GM Packet PO SCH (09:36)
[2018-10-22] MEDS: Senokot S 8.6-50 MG TAB PO SCH ×2 (09:37→21:52)
[2018-10-22] MEDS ORDERED: Pharmacy to MANAGE WARFARIN PO PRN (16:35)
[2018-10-22] MEDS: Warfarin Sodium 3 MG TAB PO SCH (17:43)
[2018-10-22] MEDS: Amlodipine 5 MG TAB PO SCH (21:51)
[2018-10-22] MEDS: Simvastatin 40 MG TAB PO SCH (21:51)
[2018-10-22] MEDS: Pioglitazone HCl 15 MG TAB PO SCH (21:52)
[2018-10-22] MEDS: Famotidine 20 MG TAB PO SCH (21:52)
[2018-10-22] MEDS: Aspirin Chewable 81 MG TAB PO SCH (21:52)
[2018-10-22] MEDS: rOPINIRole HCl 2 MG TAB PO SCH (21:52)
[2018-10-22] MEDS: metFORMIN 500 MG TAB PO SCH (21:52)
[2018-10-23 04:04] LABS: Hemoglobin 9.2 g/dL (12.0-16.0); Platelet Count 161 thou/uL (130-400)
[2018-10-23 04:11] LABS: INR-International Normal Ratio 1.1
[2018-10-23] MEDS: Lisinopril 20 MG TAB PO SCH (08:15)
[2018-10-23] MEDS: Carvedilol 12.5 MG TAB PO SCH ×2 (08:15→20:26)
[2018-10-23] MEDS: Polyethylene Glycol 3350 17 GM Packet PO SCH (08:15)
[2018-10-23] MEDS: Senokot S 8.6-50 MG TAB PO SCH ×2 (08:15→20:26)
[2018-10-23] MEDS: Warfarin Sodium 3 MG TAB PO SCH (16:40)
[2018-10-23] MEDS: Pioglitazone HCl 15 MG TAB PO SCH (20:26)
[2018-10-23] MEDS: Amlodipine 5 MG TAB PO SCH (20:26)
[2018-10-23] MEDS: Famotidine 20 MG TAB PO SCH (20:26)
[2018-10-23] MEDS: rOPINIRole HCl 2 MG TAB PO SCH (20:26)
[2018-10-23] MEDS: Aspirin Chewable 81 MG TAB PO SCH (20:27)
[2018-10-23] MEDS: Simvastatin 40 MG TAB PO SCH (20:27)
[2018-10-23] MEDS: metFORMIN 500 MG TAB PO SCH (20:27)
[2018-10-24 05:43] LABS: INR-International Normal Ratio 2.4; Prothrombin Time 25.9 SEC (12.0-14.7)
[2018-10-24] MEDS: Lisinopril 20 MG TAB PO SCH (08:36)
[2018-10-24] MEDS: Carvedilol 12.5 MG TAB PO SCH ×2 (08:36→20:18)
[2018-10-24] MEDS: Senokot S 8.6-50 MG TAB PO SCH ×2 (08:36→08:38)
[2018-10-24] MEDS: Loperamide HCl 2 MG CAP PO PRN ×2 (09:01→10:04)
[2018-10-24] MEDS: Acetaminophen 500 MG TAB PO PRN ×2 (12:42→20:19)
[2018-10-24] MEDS: Warfarin Sodium 3 MG TAB PO SCH (17:28)
[2018-10-24] MEDS: rOPINIRole HCl 2 MG TAB PO SCH (20:16)
[2018-10-24] MEDS: Aspirin Chewable 81 MG TAB PO SCH (20:17)
[2018-10-24] MEDS: Amlodipine 5 MG TAB PO SCH (20:17)
[2018-10-24] MEDS: Famotidine 20 MG TAB PO SCH (20:17)
[2018-10-24] MEDS: Pioglitazone HCl 15 MG TAB PO SCH (20:18)
[2018-10-24] MEDS: Simvastatin 40 MG TAB PO SCH (20:18)
[2018-10-24] MEDS: metFORMIN 500 MG TAB PO SCH (20:19)
[2018-10-24] MEDS: Ondansetron ODT 4 MG TAB PO PRN (23:27)
[2018-10-25 05:37] LABS: Hemoglobin 9.2 g/dL (12.0-16.0); Platelet Count 153 thou/uL (130-400)
[2018-10-25 05:39] LABS: INR-International Normal Ratio 1.3; Prothrombin Time 16.1 SEC (12.0-14.7)
[2018-10-25] MEDS: Acetaminophen 500 MG TAB PO PRN (08:50)
[2018-10-25] MEDS: Lisinopril 20 MG TAB PO SCH (08:51)
[2018-10-25] MEDS: Carvedilol 12.5 MG TAB PO SCH ×2 (08:51→20:42)
[2018-10-25] MEDS: Warfarin Sodium 5 MG TAB PO SCH (17:08)
[2018-10-25] MEDS: Pioglitazone HCl 15 MG TAB PO SCH (20:40)
[2018-10-25] MEDS: rOPINIRole HCl 2 MG TAB PO SCH (20:40)
[2018-10-25] MEDS: Simvastatin 40 MG TAB PO SCH (20:41)
[2018-10-25] MEDS: metFORMIN 500 MG TAB PO SCH (20:42)
[2018-10-25] MEDS: Amlodipine 5 MG TAB PO SCH (20:42)
[2018-10-25] MEDS: Aspirin Chewable 81 MG TAB PO SCH (20:42)
[2018-10-25] MEDS: Famotidine 20 MG TAB PO SCH (20:42)
[2018-10-26 05:34] LABS: INR-International Normal Ratio 1.7; Prothrombin Time 20.4 SEC (12.0-14.7)
[2018-10-26] MEDS: Lisinopril 20 MG TAB PO SCH (08:44)
[2018-10-26] MEDS: Carvedilol 12.5 MG TAB PO SCH (08:44)
[2018-10-26] MEDS: Acetaminophen 500 MG TAB PO PRN (12:29)
[2018-10-26] MEDS: Warfarin Sodium 5 MG TAB PO SCH (17:20)
[2018-10-26 17:44] VITALS: BP 153/67; TEMP 97.9
== END 2018-10-26 19:15 | disposition home or self-care (01) | DRG 561 ==
LOC: BURMED 14:30
PROVIDERS: ADMIT Family Medicine; ATTEND Family Medicine
DX: M80.08XD Age-related osteoporosis with current pathological fracture, vertebra(e), subsequent encounter for fracture with routine healing (principal); I48.0 Paroxysmal atrial fibrillation; E78.5 Hyperlipidemia, unspecified; N18.2 Chronic kidney disease, stage 2 (mild); E11.22 Type 2 diabetes mellitus with diabetic chronic kidney disease; I12.9 Hypertensive chronic kidney disease with stage 1 through stage 4 chronic kidney disease, or unspecified chronic kidney disease; G89.29 Other chronic pain; M54.5 Low back pain; Z90.49 Acquired absence of other specified parts of digestive tract; Z95.0 Presence of cardiac pacemaker; Z86.73 Personal history of transient ischemic attack (TIA), and cerebral infarction without residual deficits; Z90.89 Acquired absence of other organs
CPT/HCPCS: 36415; 36416; 82565; 85014; 85018; 85049; 85610; Q0162

== ENCOUNTER 2019-06-28 13:24 | Emergency (ER) | payer MEDICARE ==
--- NOTE | 2019-06-28 17:45 | RAD ---
RIGHT RIBS WITH PA CHEST 06/28/19 The heart is mildly enlarged but there is no congestive change or pleural effusion. There is mild p rominence of the interstitium of the lungs. The mediastinum shows no widening or shift. Calcification is seen in the aortic arch. A cardiac pacer is in place. The patient is very osteoporotic which could mask subtle fractures. Old healed fracture fractures of at least the right fourth through eighth ribs are noted. I could not see any location that was diagno stic of an acute fracture, though a subtle one could be easily missed in this patient. IMPRESSION: Several old rib fractures noted on the right. No definite acute findings otherwise. POS: HOME
== END 2019-06-28 14:55 | disposition home or self-care (01) ==
LOC: BURERS 13:24
DX: S29.011A Strain of muscle and tendon of front wall of thorax, initial encounter (principal); E11.9 Type 2 diabetes mellitus without complications; E78.5 Hyperlipidemia, unspecified; E78.00 Pure hypercholesterolemia, unspecified; I10 Essential (primary) hypertension; Z86.73 Personal history of transient ischemic attack (TIA), and cerebral infarction without residual deficits; X50.1XXA Overexertion from prolonged static or awkward postures, initial encounter

== ENCOUNTER 2020-03-23 14:13 | Observation (INO) | payer MEDICARE ==
[2020-03-23] MEDS ORDERED: Boostrix 0.5 ML VIAL ONE (14:52)
[2020-03-23] MEDS ORDERED: Bacitracin 1 PK ONE (14:52)
[2020-03-23 15:11] LABS: Prothrombin Time 45.8 sec (12.0-14.7)
[2020-03-23 15:21] LABS: #Basophils 0.1 thou/uL (0.0-0.2); #Eosinphils 0.2 thou/uL (0.0-0.7); #Lymphocytes 1.6 thou/uL (1.20-3.40); #Monocytes 0.4 thou/uL (0.11-0.59); %Basophils 1.2 % (0.0-1.0); %Eosinophils 4.3 % (0.0-10.0); %Lymphocytes 30.6 % (21.0-51.0); %Neutrophils 55.9 % (42.0-75.0); Hemoglobin 10.3 g/dL (12.0-16.0); MDiff Complete? YES; Macrocytosis SLIGHT = 6-15 cells (100X) (0-5/hpf); Mean Corpuscular HGB CONC 31.5 g/dL (32.0-36.0); Mean Corpuscular Hemoglobin 34.7 pg (27.0-31.0); Mean Platelet Volume 5.9 fL (7.4-10.4); Platelet Count 160 thou/uL (130-400); RBC Distribution Width 13.4 % (11.5-14.5); Red Blood Cell (RBC) Count 2.96 mill/uL (4.20-5.40); White Blood Cell (WBC) Count 5.3 thou/uL (4.8-10.8)
--- NOTE | 2020-03-23 16:25 | RAD ---
LEFT ELBOW 4 VIEWS: Date: 03/23/2020 Some of the views were less than optimal, but the best that could be obtained on this patient at this time. There was no strong evidence for fracture or dislocation. There does not appear to be a joint effusion. Arterial calcifications were noted. IMPRESSION: No acute bony findings. POS: HOME
--- NOTE | 2020-03-23 16:29 | CT ---
CT OF THE BRAIN WITHOUT CONTRAST: Date: 03/23/2020 Comparison is made with the prior study of 09/22/2015. Extensive encephalomalacia from an old left occipital stroke is noted. There were no findings strongl y suggestive of an acute stroke. There may have been a tiny old stroke involving the left occipital l obe as well posteriorly. No intracranial bleeding was seen today. There is no extra-axial hematoma. D iffuse atrophy with mild compensatory dilatation of the ventricles was present, as well as chronic is chemic change throughout the deep white matter bilaterally. The skull appears intact. The sphenoid sinus and visible paranasal sinuses are clear. IMPRESSION: Old right occipital stroke. Atrophy and chronic ischemic change, but no acute traumatic findings. POS: HOME
--- NOTE | 2020-03-23 16:30 | CT ---
CT OF THE FACIAL BONES: Date: 03/23/2020 No facial fractures were seen. The orbital rims, zygomatic arches, nasal bones, mandible, and maxilla all appeared intact. The paranasal sinuses are clear. There is some mild mucosal thickening in the r ight side of the sphenoid sinus. The retroorbital areas were unremarkable in appearance. One of the r emaining molars in the left mandible shows significant carious destruction and periapical lucency noam und its root. IMPRESSION: No acute facial fracture seen. All scans called to Dr. Serna at 1545 hours on 03/23/2020. CODE CR. POS: HOME
[2020-03-23] MEDS ORDERED: Ondansetron PF 4 MG/2 ML Vial IVP PRN (18:30)
[2020-03-23] MEDS ORDERED: Ondansetron ODT 4 MG TAB SL PRN (18:30)
[2020-03-23] MEDS ORDERED: Acetaminophen 325 MG TAB PO PRN (18:30)
[2020-03-23 18:31] VITALS: BMI 23.4
[2020-03-23] MEDS ORDERED: Carvedilol 12.5 MG TAB PO SCH (21:00)
[2020-03-23] MEDS ORDERED: rOPINIRole HCl 2 MG TAB PO SCH (21:00)
[2020-03-23] MEDS ORDERED: Atorvastatin Calcium 10 MG TAB PO SCH (21:00)
[2020-03-23] MEDS ORDERED: Amlodipine 5 MG TAB PO SCH (21:00)
[2020-03-23] MEDS ORDERED: Aspirin Chewable 81 MG TAB PO SCH (21:00)
[2020-03-23] MEDS: Carvedilol 6.25 MG TAB PO SCH (21:17)
[2020-03-23] MEDS: Acetaminophen 325 MG TAB PO SCH (21:19)
--- NOTE | 2020-03-23 21:32 | RAD ---
LEFT KNEE FOUR VIEWS: Date: 03-23-2020 FINDINGS: No fracture or dislocation was seen. The bones are osteoporotic but do appear intact. If any joint fl uid is present, it is minimal. Dense arterial calcifications are seen. IMPRESSION: No acute bony findings. POS: HOME
--- NOTE | 2020-03-24 01:26 | HP ---
CHIEF COMPLAINT: Closed head injury, status post fall. HISTORY OF PRESENT ILLNESS: 84-year-old female was brought to the [facility] Emergency Department earlier today by her status post fall at home. The patient reports a gate bumping into her, causing her to trip and fall on her left side; she struck the left side of her head and left forearm/elbow on the ground. She denies having loss of consciousness. She sustained an avulsion laceration to the left forearm for which they could not control the bleeding, which prompted their arrival at the emergency department. The patient has a history of atrial fibrillation for which she is anticoagulated with Coumadin. She was effectively bandaged in the emergency department to control the bleeding from her left forearm wound. Workup revealed a supratherapeutic INR at 5.0. Subsequent imaging was obtained including CT of brain, facial bones, and left elbow x-ray. Overall, her imaging was reassuring. Dr. Serna, emergency room physician contacted trauma surgeon, Dr. Blake, regarding her elevated INR and closed head injury; the patient was recommended for admission overnight with repeat head CT in the morning and q.2 hours neuro checks. The patient and her were agreeable to this and therefore admitted under observation status. PAST MEDICAL HISTORY: Includes atrial fibrillation, lumbar compression fractures, osteoporosis, hypertension, hyperlipidemia. PAST SURGICAL HISTORY: Kidney stone removed in 2004, cholecystectomy, tonsillectomy, pacemaker placement, vertebroplasty of L1 and L2 kyphoplasty. SOCIAL HISTORY: The patient lives at home with her . She does not drink, smoke, or use illicit drugs. ALLERGIES: TRAMADOL. FAMILY HISTORY: Noncontributory. CURRENT MEDICATIONS: 1. Carvedilol 12.5 mg p.o. b.i.d. 2. Aspirin 81 mg. 3. Tylenol 650 mg p.o. b.i.d. 4. Amlodipine 5 mg daily. 5. Lisinopril 20 mg daily. 6. Simvastatin 20 mg at bedtime. 7. Ropinirole 1 mg at bedtime. 8. Coumadin 4 mg daily, which will be held. REVIEW OF SYSTEMS: GENERAL: The patient denies fever, chills or diaphoresis. EAR, NOSE, AND THROAT: Denies sore throat, nasal drainage or congestion. CARDIOVASCULAR: Denies chest pain or palpitations. RESPIRATORY: Denies shortness of breath or cough. GASTROINTESTINAL: Denies abdominal pain, nausea, vomiting, diarrhea, or constipation. GENITOURINARY: Denies dysuria. MUSCULOSKELETAL: Complains of joint pain. DERMATOLOGIC: Denies rash. NEUROLOGIC: Denies headache. LABORATORY DATA: INR 5.0. White blood cell count 5.3, hemoglobin 10.3, hematocrit 32.7, platelets 160. IMAGING: CT scan of facial bones shows no acute facial fracture. CT scan of brain shows old right occipital stroke, atrophy and chronic ischemic change, but no acute traumatic findings. Left elbow x-ray shows no acute bony findings. PHYSICAL EXAMINATION: VITAL SIGNS: Temperature is 98.5, pulse is 65, respiratory rate is 20, oxygen 99% on room air, and blood pressure 185/75. GENERAL: The patient is alert and oriented, in no acute distress. HEAD, EYES, EARS, NOSE, AND THROAT: She has a left periorbital ecchymosis. Sclerae are clear. Extraocular muscles are intact bilaterally. She has no facial asymmetry. Moist mucous membranes. NECK: Supple without lymphadenopathy. CARDIOVASCULAR: Regular rate and rhythm. Normal S1, S2. RESPIRATORY: Clear to auscultation bilaterally. No wheezes, rales, or rhonchi. ABDOMEN: Soft and nontender to palpation. EXTREMITIES: No clubbing, cyanosis, or edema. SKIN: She has a clean dry bandage covering the left proximal forearm. No rashes. NEUROLOGIC: Nonfocal with cranial nerves 2 through 12 grossly intact. ASSESSMENT AND PLAN: 1. Closed head injury status post fall. CT scans of the facial bones and brain reassuring overall with no acute findings noted. Secondary to the patient's supratherapeutic INR, it has been recommended for observation overnight with repeat CT head in the morning and q.2 hours neuro checks. 2. Left elbow laceration, unable to close secondary to avulsion nature of wound. This has been cleaned and bandaged. We will resume wound care. The patient did receive Tdap in the emergency department. 3. Supratherapeutic INR. Coumadin will be held with repeat PT/INR in the morning. Review of the past three INR checks all show to be therapeutic ranging from 2.2 to 2.9. 4. Atrial fibrillation. Heart rate is controlled. 5. Hypertension. We will resume the patient's home blood pressure medications. 6. Dyslipidemia. We will resume the patient's home statin therapy. DISPOSITION: We will re-evaluate the patient tomorrow via repeat CT scan of the brain along with INR check. Should these be reassuring along with normal neurological exam, it is likely that she should be able to discharge home at that time. Job ID: [id number] [facility]TD[facility]
[2020-03-24 04:13] LABS: Prothrombin Time 41.9 sec (12.0-14.7)
[2020-03-24 04:21] LABS: ALT (SGPT) 13 U/L (8-55); AST (SGOT) 13 U/L (5-34); Albumin 3.5 g/dL (3.4-4.8); Alkaline Phosphatase 45 U/L (40-110); Anion Gap 14 mmol/L (10-20); BUN (Urea Nitrogen) 24 mg/dL (9.8-20.1); Bilirubin, Total 0.5 mg/dL (0.2-1.2); Calc. Creatinine Clearance 48 mL/min (70-130); Calcium 8.7 mg/dL (7.8-10.44); Carbon Dioxide 24 mmol/L (23-31); Chloride 108 mmol/L (98-107); Estimated GFR-MDRD 72; Globulin 2.8 g/dL (2.4-3.5); Glucose 88 mg/dL (83-110); Potassium 3.9 mmol/L (3.5-5.1); Protein, Total 6.3 g/dL (6.0-8.3); Sodium 142 mmol/L (136-145)
[2020-03-24 04:28] LABS: #Basophils 0.1 thou/uL (0.0-0.2); #Eosinphils 0.3 thou/uL (0.0-0.7); #Lymphocytes 1.8 thou/uL (1.20-3.40); #Monocytes 0.5 thou/uL (0.11-0.59); #Neutrophils 2.9 thou/uL (1.40-6.50); %Basophils 1.7 % (0.0-1.0); %Eosinophils 4.7 % (0.0-10.0); %Lymphocytes 32.8 % (21.0-51.0); %Monocytes 9.3 % (0.0-10.0); %Neutrophils 51.5 % (42.0-75.0); Hemoglobin 9.5 g/dL (12.0-16.0); MDiff Complete? YES; Macrocytosis SLIGHT = 6-15 cells (100X) (0-5/hpf); Mean Corpuscular HGB CONC 32.8 g/dL (32.0-36.0); Mean Corpuscular Hemoglobin 35.3 pg (27.0-31.0); Mean Platelet Volume 6.6 fL (7.4-10.4); Platelet Count 135 thou/uL (130-400); Platelet Morphology Comment Appears Adequate; RBC Distribution Width 13.1 % (11.5-14.5); Red Blood Cell (RBC) Count 2.71 mill/uL (4.20-5.40); White Blood Cell (WBC) Count 5.5 thou/uL (4.8-10.8)
[2020-03-24 05:15] LABS: INR-International Normal Ratio 4.4
--- NOTE | 2020-03-24 07:26 | CT ---
CT OF THE BRAIN WITHOUT CONTRAST: Date: 03/24/2020 Comparison made with the study done yesterday on 03/23/2020. There has been no adverse interval change. No intracranial bleeding or extra-axial hematoma seen. The extensive encephalomalacia from the prior right occipital stroke is again noted. There is probably a tiny right occipital stroke from the past as well. The ventricular sizes have not changed. IMPRESSION: Old ischemic changes as described. No acute traumatic changes and no change since yesterday's scan. POS: HOME
[2020-03-24] MEDS ORDERED: Lisinopril 20 MG TAB PO SCH (09:00)
[2020-03-24] MEDS ORDERED: FLU VACC QS2020-21(65YR UP)/PF 240 MCG/0.7 ML SYRINGE IM ONE (09:00)
[2020-03-24] MEDS: Carvedilol 6.25 MG TAB PO SCH (09:34)
[2020-03-24] MEDS: Acetaminophen 325 MG TAB PO SCH (09:37)
[2020-03-24 09:39] VITALS: BP 137/63
[2020-03-24 12:12] VITALS: TEMP 98.3
[2020-03-24] MEDS ORDERED: Loperamide HCl 2 MG CAP PO SCH (12:15)
--- NOTE | 2020-03-25 02:49 | DIS ---
DATE OF ADMISSION: 03/23/2020 DATE OF DISCHARGE: 03/24/2020 ADMISSION DIAGNOSES: Closed head injury status post fall, left elbow/forearm laceration, and supratherapeutic INR. SECONDARY DIAGNOSES: Atrial fibrillation, hypertension, and dyslipidemia. PROCEDURES: 03/23/2020, brain CT scan showed old right occipital stroke, atrophy, and chronic ischemic change, but no acute traumatic findings. 03/23/2020, left elbow x-ray showed no acute bony findings. 03/23/2020, facial bones CT scan showed no acute facial fracture seen and 03/24/2020, CT scan of brain showed old ischemic changes as described. No acute traumatic changes and no change since yesterday's scan. HOSPITAL COURSE: An 84-year-old female was brought to the [facility] Emergency Department yesterday afternoon by her status post accidental fall when she was bumped by a gate causing her to fall on her left side. She sustained an avulsion laceration to the proximal left forearm and struck the left side of her face and head. She had no loss of consciousness. The patient is on chronic Coumadin therapy secondary to underlying history of atrial fibrillation. She was brought to the Emergency Department secondary to the patient and her having difficulty stopping the bleeding from the left arm wound. Workup in the Emergency Department revealed the patient to be supratherapeutic with an INR of 5.0. Imaging was obtained as above and largely reassuring. The ED physician, Dr. Serna did reach out to trauma surgeon, Dr. Blake, who recommended the patient to be admitted for observation status with q.2 neuro checks and repeat brain CT scan in the morning. Of note, the repeat CT brain scan this morning is unchanged and reassuring. Her Coumadin has been held and INR has improved slightly to a level of 4.4. The patient is completely neurologically intact; she is fully alert and oriented and has no reservations pertaining to returning home at this time. She has been instructed to withhold taking Coumadin today and tomorrow and to follow up on , 03/26/2020 at the [facility] for repeat PT/INR level. At that time, her Coumadin level may be further titrated versus potentially switching to an alternative agent such as Eliquis should her INR be below the level of 2.0. As stated, the patient is at her baseline and appropriate for discharge home with the aforementioned plan. DISPOSITION: The patient will be discharged home, where she stays with her . She has been instructed to follow up with the [facility] in [place] in two days on 03/26/2020 for repeat PT/INR testing, and to hold Coumadin until her repeat testing value is known. DISCHARGE MEDICATIONS: The patient will hold Coumadin until her repeat INR testing in two days. She is to resume her usual medications otherwise, which include; 1. Carvedilol 12.5 mg b.i.d. 2. Tylenol 650 mg b.i.d. 3. Amlodipine 5 mg daily. 4. Lisinopril 20 mg daily. 5. Simvastatin 20 mg at bedtime. 6. Ropinirole 1 mg at bedtime. 7. Aspirin 81 mg daily. Total time spent in preparation of discharge of this patient is 31 minutes. Job ID: [id number]
== END 2020-03-24 11:30 | disposition home or self-care (01) ==
LOC: BURERS 14:13 → BURMED 16:30 → UNDOADMOB 17:34 → BURMED 17:34
PROVIDERS: ADMIT Family Medicine; ATTEND Family Medicine
DX: S09.90XA Unspecified injury of head, initial encounter (principal); S51.012A Laceration without foreign body of left elbow, initial encounter; I10 Essential (primary) hypertension; I48.91 Unspecified atrial fibrillation; E78.5 Hyperlipidemia, unspecified; Z79.01 Long term (current) use of anticoagulants; Z79.82 Long term (current) use of aspirin; Z79.899 Other long term (current) drug therapy; Z88.5 Allergy status to narcotic agent; W18.09XA Striking against other object with subsequent fall, initial encounter; Y92.009 Unspecified place in unspecified non-institutional (private) residence as the place of occurrence of the external cause
CPT/HCPCS: 36415; 70450; 70486; 80053; 85025; 85610; 90471; 90662; 90715; G0008; G0378

== ENCOUNTER 2021-02-26 19:47 | Inpatient (IN) | payer MEDICARE ==
[2021-02-26 20:58] VITALS: BMI 27.1
[2021-02-26] MEDS ORDERED: Ibuprofen 200 MG TAB PO PRN (21:07)
[2021-02-26] MEDS ORDERED: traMADol HCl 50 MG TAB PO PRN (21:13)
[2021-02-27] MEDS: Acetaminophen 500 MG TAB PO SCH ×5 (00:35→17:41)
[2021-02-27] MEDS: Carvedilol 25 MG TAB PO SCH ×2 (08:41→17:40)
[2021-02-27] MEDS ORDERED: Lisinopril 20 MG TAB PO SCH (09:00)
[2021-02-27] MEDS ORDERED: Amlodipine 5 MG TAB PO SCH (09:00)
[2021-02-27] MEDS ORDERED: Famotidine 20 MG TAB PO SCH (09:00)
[2021-02-27] MEDS ORDERED: Aspirin Chewable 81 MG TAB PO SCH (09:00)
[2021-02-27] MEDS ORDERED: Ibuprofen 200 MG TAB PO PRN (10:21)
[2021-02-27] MEDS: Albuterol Sulfate 2.5 mg/3 ml Neb NEB PRN (12:25)
[2021-02-27] MEDS: Atorvastatin Calcium 10 MG TAB PO SCH (20:57)
[2021-02-27] MEDS: rOPINIRole HCl 2 MG TAB PO SCH (20:57)
[2021-02-27] MEDS: Carvedilol 6.25 MG TAB PO SCH (20:58)
[2021-02-27] MEDS ORDERED: rOPINIRole HCl 2 MG TAB PO SCH (21:00)
[2021-02-27] MEDS ORDERED: Atorvastatin Calcium 10 MG TAB PO SCH (21:00)
[2021-02-28] MEDS: Acetaminophen 500 MG TAB PO SCH ×4 (00:32→17:49)
[2021-02-28] MEDS: Aspirin Chewable 81 MG TAB PO SCH (09:01)
[2021-02-28] MEDS: Carvedilol 6.25 MG TAB PO SCH (09:03)
[2021-02-28] MEDS: Lisinopril 20 MG TAB PO SCH (09:04)
[2021-02-28] MEDS: Amlodipine 5 MG TAB PO SCH (09:05)
[2021-02-28] MEDS: Famotidine 20 MG TAB PO SCH (09:05)
[2021-02-28] MEDS: Albuterol Sulfate 2.5 mg/3 ml Neb NEB PRN ×2 (10:21→16:20)
[2021-02-28] MEDS: Carvedilol 25 MG TAB PO SCH ×2 (17:48→17:52)
[2021-02-28] MEDS: Atorvastatin Calcium 10 MG TAB PO SCH (20:46)
[2021-02-28] MEDS: rOPINIRole HCl 2 MG TAB PO SCH (20:46)
[2021-02-28] MEDS: traMADol HCl 50 MG TAB PO PRN (21:35)
[2021-03-01] MEDS: Acetaminophen 500 MG TAB PO SCH ×4 (00:05→17:52)
[2021-03-01] MEDS: traMADol HCl 50 MG TAB PO PRN (05:29)
[2021-03-01] MEDS: Carvedilol 25 MG TAB PO SCH ×2 (08:53→17:52)
[2021-03-01] MEDS: Aspirin Chewable 81 MG TAB PO SCH (08:53)
[2021-03-01] MEDS: Lisinopril 20 MG TAB PO SCH (08:55)
[2021-03-01] MEDS: Famotidine 20 MG TAB PO SCH (08:55)
[2021-03-01] MEDS: Amlodipine 5 MG TAB PO SCH (08:57)
[2021-03-01] MEDS: Loperamide HCl 2 MG CAP PO PRN ×2 (11:41→20:46)
[2021-03-01] MEDS: Albuterol Sulfate 2.5 mg/3 ml Neb NEB PRN ×2 (11:41→18:19)
[2021-03-01] MEDS: rOPINIRole HCl 2 MG TAB PO SCH (20:46)
[2021-03-01] MEDS: Atorvastatin Calcium 10 MG TAB PO SCH (20:47)
[2021-03-02] MEDS: Acetaminophen 500 MG TAB PO SCH ×4 (00:08→17:38)
[2021-03-02] MEDS: Albuterol Sulfate 2.5 mg/3 ml Neb NEB PRN ×2 (00:10→05:15)
[2021-03-02] MEDS: Carvedilol 25 MG TAB PO SCH ×2 (08:49→17:38)
[2021-03-02] MEDS: Aspirin Chewable 81 MG TAB PO SCH (08:49)
[2021-03-02] MEDS: Famotidine 20 MG TAB PO SCH (08:49)
[2021-03-02] MEDS: Amlodipine 5 MG TAB PO SCH (08:50)
[2021-03-02] MEDS: Lisinopril 20 MG TAB PO SCH (08:52)
[2021-03-02] MEDS: Atorvastatin Calcium 10 MG TAB PO SCH (21:35)
[2021-03-02] MEDS: rOPINIRole HCl 2 MG TAB PO SCH (21:35)
[2021-03-03] MEDS: Acetaminophen 500 MG TAB PO SCH ×4 (00:09→17:30)
[2021-03-03] MEDS: Lisinopril 20 MG TAB PO SCH (08:17)
[2021-03-03] MEDS: Aspirin Chewable 81 MG TAB PO SCH (08:17)
[2021-03-03] MEDS: Famotidine 20 MG TAB PO SCH (08:18)
[2021-03-03] MEDS: Carvedilol 25 MG TAB PO SCH ×2 (08:18→17:30)
[2021-03-03] MEDS: Amlodipine 5 MG TAB PO SCH (08:19)
[2021-03-03] MEDS: Benzonatate 100 MG CAP PO PRN (12:50)
[2021-03-03] MEDS: rOPINIRole HCl 2 MG TAB PO SCH (21:16)
[2021-03-03] MEDS: Atorvastatin Calcium 10 MG TAB PO SCH (21:16)
[2021-03-04] MEDS: Acetaminophen 500 MG TAB PO SCH ×5 (00:08→23:26)
[2021-03-04] MEDS: Benzonatate 100 MG CAP PO PRN ×2 (00:10→13:03)
[2021-03-04] MEDS: Albuterol Sulfate 2.5 mg/3 ml Neb NEB PRN ×2 (04:30→13:03)
[2021-03-04] MEDS: Lisinopril 20 MG TAB PO SCH (08:44)
[2021-03-04] MEDS: Aspirin Chewable 81 MG TAB PO SCH (08:45)
[2021-03-04] MEDS: Carvedilol 25 MG TAB PO SCH ×2 (08:45→16:29)
[2021-03-04] MEDS: Amlodipine 5 MG TAB PO SCH (08:45)
[2021-03-04] MEDS: Famotidine 20 MG TAB PO SCH (08:46)
[2021-03-04] MEDS: traMADol HCl 50 MG TAB PO PRN (13:48)
[2021-03-04] MEDS ORDERED: Azithromycin 250 MG TAB PO SCH (15:45)
[2021-03-04] MEDS ORDERED: predniSONE 20 MG TAB PO SCH (15:45)
[2021-03-04] MEDS: Atorvastatin Calcium 10 MG TAB PO SCH (20:41)
[2021-03-04] MEDS: rOPINIRole HCl 2 MG TAB PO SCH (20:41)
[2021-03-05] MEDS: Acetaminophen 500 MG TAB PO SCH ×4 (05:13→23:17)
[2021-03-05] MEDS: predniSONE 20 MG TAB PO SCH (09:43)
[2021-03-05] MEDS: Famotidine 20 MG TAB PO SCH (09:44)
[2021-03-05] MEDS: Azithromycin 250 MG TAB PO SCH (09:44)
[2021-03-05] MEDS: Aspirin Chewable 81 MG TAB PO SCH (09:45)
[2021-03-05] MEDS: Lisinopril 20 MG TAB PO SCH (09:45)
[2021-03-05] MEDS: Carvedilol 25 MG TAB PO SCH ×2 (09:45→18:17)
[2021-03-05] MEDS: Amlodipine 5 MG TAB PO SCH (09:46)
[2021-03-05] MEDS: rOPINIRole HCl 2 MG TAB PO SCH (20:49)
[2021-03-05] MEDS: Atorvastatin Calcium 10 MG TAB PO SCH (20:50)
[2021-03-05] MEDS: Benzonatate 100 MG CAP PO PRN (23:17)
[2021-03-06] MEDS: Acetaminophen 500 MG TAB PO SCH ×4 (07:23→23:40)
[2021-03-06] MEDS: Azithromycin 250 MG TAB PO SCH (08:59)
[2021-03-06] MEDS: predniSONE 20 MG TAB PO SCH (09:00)
[2021-03-06] MEDS: Carvedilol 25 MG TAB PO SCH ×2 (09:02→16:30)
[2021-03-06] MEDS: Famotidine 20 MG TAB PO SCH (09:02)
[2021-03-06] MEDS: Amlodipine 5 MG TAB PO SCH (09:02)
[2021-03-06] MEDS: Aspirin Chewable 81 MG TAB PO SCH (09:02)
[2021-03-06] MEDS: Lisinopril 20 MG TAB PO SCH (09:03)
[2021-03-06] MEDS: Benzonatate 100 MG CAP PO PRN (18:37)
[2021-03-06] MEDS: rOPINIRole HCl 2 MG TAB PO SCH (20:35)
[2021-03-06] MEDS: Atorvastatin Calcium 10 MG TAB PO SCH (20:35)
[2021-03-07] MEDS: Benzonatate 100 MG CAP PO PRN ×2 (04:04→10:58)
[2021-03-07] MEDS: Acetaminophen 500 MG TAB PO SCH ×4 (05:41→23:04)
[2021-03-07] MEDS: Carvedilol 25 MG TAB PO SCH ×2 (09:44→18:11)
[2021-03-07] MEDS: predniSONE 20 MG TAB PO SCH (09:44)
[2021-03-07] MEDS: Famotidine 20 MG TAB PO SCH (09:44)
[2021-03-07] MEDS: Lisinopril 20 MG TAB PO SCH (09:45)
[2021-03-07] MEDS: Amlodipine 5 MG TAB PO SCH (09:45)
[2021-03-07] MEDS: Aspirin Chewable 81 MG TAB PO SCH (09:45)
[2021-03-07] MEDS: rOPINIRole HCl 2 MG TAB PO SCH (20:22)
[2021-03-07] MEDS: traMADol HCl 50 MG TAB PO PRN (20:23)
[2021-03-07] MEDS: Atorvastatin Calcium 10 MG TAB PO SCH (20:24)
[2021-03-08] MEDS: Acetaminophen 500 MG TAB PO SCH ×4 (05:47→23:11)
[2021-03-08] MEDS: Famotidine 20 MG TAB PO SCH (08:32)
[2021-03-08] MEDS: Lisinopril 20 MG TAB PO SCH (08:32)
[2021-03-08] MEDS: Amlodipine 5 MG TAB PO SCH (08:33)
[2021-03-08] MEDS: predniSONE 20 MG TAB PO SCH (08:33)
[2021-03-08] MEDS: Benzonatate 100 MG CAP PO PRN ×2 (08:34→18:06)
[2021-03-08] MEDS: Aspirin Chewable 81 MG TAB PO SCH (08:34)
[2021-03-08] MEDS: Carvedilol 25 MG TAB PO SCH ×2 (08:34→18:07)
[2021-03-08] MEDS: rOPINIRole HCl 2 MG TAB PO SCH (20:32)
[2021-03-08] MEDS: Atorvastatin Calcium 10 MG TAB PO SCH (20:32)
[2021-03-09] MEDS: Acetaminophen 500 MG TAB PO SCH ×3 (05:14→17:30)
[2021-03-09] MEDS: Benzonatate 100 MG CAP PO PRN (05:14)
[2021-03-09] MEDS: Lisinopril 20 MG TAB PO SCH (09:40)
[2021-03-09] MEDS: Aspirin Chewable 81 MG TAB PO SCH (09:40)
[2021-03-09] MEDS: Amlodipine 5 MG TAB PO SCH (09:40)
[2021-03-09] MEDS: Famotidine 20 MG TAB PO SCH (09:41)
[2021-03-09] MEDS: Carvedilol 25 MG TAB PO SCH ×2 (09:41→17:29)
[2021-03-09] MEDS: rOPINIRole HCl 2 MG TAB PO SCH (21:17)
[2021-03-09] MEDS: Atorvastatin Calcium 10 MG TAB PO SCH (21:19)
[2021-03-09 23:09] LABS: SARS-CoV-2 PCR by NAA Not Detected (NotDetected)
[2021-03-10] MEDS: Acetaminophen 500 MG TAB PO SCH ×5 (00:03→23:56)
[2021-03-10] MEDS: Lisinopril 20 MG TAB PO SCH (08:59)
[2021-03-10] MEDS: Amlodipine 5 MG TAB PO SCH (08:59)
[2021-03-10] MEDS: Aspirin Chewable 81 MG TAB PO SCH (08:59)
[2021-03-10] MEDS: Carvedilol 25 MG TAB PO SCH ×2 (08:59→16:08)
[2021-03-10] MEDS: Famotidine 20 MG TAB PO SCH (08:59)
[2021-03-10] MEDS: Loperamide HCl 2 MG CAP PO PRN (11:16)
[2021-03-10] MEDS: traMADol HCl 50 MG TAB PO PRN (20:48)
[2021-03-10] MEDS: rOPINIRole HCl 2 MG TAB PO SCH (20:49)
[2021-03-10] MEDS: Atorvastatin Calcium 10 MG TAB PO SCH (20:50)
[2021-03-11] MEDS: Acetaminophen 500 MG TAB PO SCH ×3 (05:13→18:35)
[2021-03-11] MEDS: Famotidine 20 MG TAB PO SCH (09:50)
[2021-03-11] MEDS: Amlodipine 5 MG TAB PO SCH (09:50)
[2021-03-11] MEDS: Lisinopril 20 MG TAB PO SCH (09:50)
[2021-03-11] MEDS: Aspirin Chewable 81 MG TAB PO SCH (09:50)
[2021-03-11] MEDS: Carvedilol 25 MG TAB PO SCH ×2 (09:51→16:47)
[2021-03-11] MEDS: traMADol HCl 50 MG TAB PO PRN (16:47)
[2021-03-11] MEDS: rOPINIRole HCl 2 MG TAB PO SCH (20:57)
[2021-03-11] MEDS: Atorvastatin Calcium 10 MG TAB PO SCH (20:57)
[2021-03-12] MEDS: Acetaminophen 500 MG TAB PO SCH ×4 (00:13→17:35)
[2021-03-12] MEDS ORDERED: Ondansetron ODT 4 MG TAB PO PRN (02:40)
[2021-03-12] MEDS: Aspirin Chewable 81 MG TAB PO SCH (08:59)
[2021-03-12] MEDS: Lisinopril 20 MG TAB PO SCH (08:59)
[2021-03-12] MEDS: Famotidine 20 MG TAB PO SCH (08:59)
[2021-03-12] MEDS: Carvedilol 25 MG TAB PO SCH ×2 (09:00→17:35)
[2021-03-12] MEDS: Amlodipine 5 MG TAB PO SCH (09:00)
[2021-03-12] MEDS: Atorvastatin Calcium 10 MG TAB PO SCH (20:18)
[2021-03-12] MEDS: rOPINIRole HCl 2 MG TAB PO SCH (20:18)
[2021-03-12 21:22] LABS: Bilirubin Negative (Negative); Blood, Urine Negative (Negative); Clarity Clear (Clear); Glucose, Urine (Dipstick) Negative (Negative); Ketone, Urine Negative (Negative); Leukocyte Negative (Negative); Nitrite Negative (Negative); Protein, Urine (Dipstick) Negative (Neg-Trace); Specific Gravity, Urine 1.015 (1.005-1.030); Urobilinogen 0.2 mg/dL (Less than 2)
[2021-03-13] MEDS: Acetaminophen 500 MG TAB PO SCH ×5 (06:37→23:33)
[2021-03-13] MEDS: Famotidine 20 MG TAB PO SCH (10:19)
[2021-03-13] MEDS: Lisinopril 20 MG TAB PO SCH (10:20)
[2021-03-13] MEDS: Amlodipine 5 MG TAB PO SCH (10:21)
[2021-03-13] MEDS: Carvedilol 25 MG TAB PO SCH ×2 (10:21→16:55)
[2021-03-13] MEDS: Aspirin Chewable 81 MG TAB PO SCH (10:21)
[2021-03-13] MEDS: Atorvastatin Calcium 10 MG TAB PO SCH (20:14)
[2021-03-13] MEDS: rOPINIRole HCl 2 MG TAB PO SCH (20:15)
[2021-03-13] MEDS: Benzonatate 100 MG CAP PO PRN (20:16)
[2021-03-14] MEDS: Acetaminophen 500 MG TAB PO SCH ×3 (05:31→17:25)
[2021-03-14] MEDS: Aspirin Chewable 81 MG TAB PO SCH (09:26)
[2021-03-14] MEDS: Lisinopril 20 MG TAB PO SCH (09:27)
[2021-03-14] MEDS: Famotidine 20 MG TAB PO SCH (09:27)
[2021-03-14] MEDS: Amlodipine 5 MG TAB PO SCH (09:27)
[2021-03-14] MEDS: Carvedilol 25 MG TAB PO SCH ×2 (09:28→16:24)
[2021-03-14] MEDS: rOPINIRole HCl 2 MG TAB PO SCH (21:21)
[2021-03-14] MEDS: Atorvastatin Calcium 10 MG TAB PO SCH (21:21)
[2021-03-15] MEDS: Acetaminophen 500 MG TAB PO SCH ×4 (00:49→18:21)
[2021-03-15] MEDS: Aspirin Chewable 81 MG TAB PO SCH (08:54)
[2021-03-15] MEDS: Amlodipine 5 MG TAB PO SCH (08:54)
[2021-03-15] MEDS: Lisinopril 20 MG TAB PO SCH (08:54)
[2021-03-15] MEDS: Carvedilol 25 MG TAB PO SCH ×2 (08:55→15:51)
[2021-03-15] MEDS: Famotidine 20 MG TAB PO SCH (08:55)
[2021-03-15] MEDS: Benzonatate 100 MG CAP PO PRN (15:50)
[2021-03-15 17:51] VITALS: BP 128/69; TEMP 98.3
== END 2021-03-15 18:50 | disposition home or self-care (01) | DRG 561 ==
LOC: UNDOADMIN 19:47 → BURMED 19:47
PROVIDERS: ADMIT Family Medicine; ATTEND Family Medicine
DX: S32.591D Other specified fracture of right pubis, subsequent encounter for fracture with routine healing (principal); E11.9 Type 2 diabetes mellitus without complications; I10 Essential (primary) hypertension; W19.XXXD Unspecified fall, subsequent encounter; R06.2 Wheezing; I48.91 Unspecified atrial fibrillation
CPT/HCPCS: 71045; 81003; 87086; 94640; J7512; J7611; J7620; Q0162; U0003; U0005

== ENCOUNTER 2022-05-15 13:33 | Observation (INO) | payer MEDICARE ==
[2022-05-15] MEDS ORDERED: Acetaminophen 500 MG TAB ONE (14:15)
[2022-05-15 14:22] LABS: #Basophils 0.1 thou/uL (0.0-0.2); #Lymphocytes 0.6 thou/uL (1.20-3.40); #Monocytes 0.5 thou/uL (0.11-0.59); #Neutrophils 2.7 thou/uL (1.40-6.50); %Basophils 2.7 % (0.0-1.0); %Eosinophils 0.3 % (0.0-10.0); %Lymphocytes 16.1 % (21.0-51.0); %Neutrophils 67.8 % (42.0-75.0); Hemoglobin 12.6 g/dL (12.0-16.0); Mean Corpuscular HGB CONC 33.6 g/dL (32.0-36.0); Mean Corpuscular Hemoglobin 35.9 pg (27.0-31.0); Mean Platelet Volume 7.9 fL (7.4-10.4); Platelet Count 124 10x3/uL (130-400); Red Blood Cell (RBC) Count 3.49 mill/uL (4.20-5.40)
[2022-05-15 14:38] LABS: ALT (SGPT) 13 U/L (8-55); AST (SGOT) 24 U/L (5-34); Albumin 3.9 g/dL (3.4-4.8); Alkaline Phosphatase 38 U/L (40-110); Anion Gap 13 mmol/L (10-20); BUN (Urea Nitrogen) 18 mg/dL (9.8-20.1); Bilirubin, Total 0.5 mg/dL (0.2-1.2); Calc. Creatinine Clearance 0 mL/min (70-130); Calcium 8.7 mg/dL (7.8-10.44); Carbon Dioxide 25 mmol/L (23-31); Chloride 102 mmol/L (98-107); Estimated GFR 51; Glucose 79 mg/dL (83-110); Lipase 13 U/L (8-78); Potassium 3.9 mmol/L (3.5-5.1); Protein, Total 6.9 g/dL (5.8-8.1); Sodium 136 mmol/L (136-145)
[2022-05-15 14:40] LABS: MDiff Complete? YES; RBC Morphology Normal
[2022-05-15 15:11] LABS: Bilirubin Negative (Negative); Blood, Urine Small (Negative); Clarity Clear (Clear); Glucose, Urine (Dipstick) Negative (Negative); Ketone, Urine Trace mg/dL (Negative); Leukocyte Negative (Negative); Nitrite Negative (Negative); Protein, Urine (Dipstick) Negative (Neg-Trace); Urobilinogen 0.2 mg/dL (Less than 2); pH, Urine 5.5 (5.0-9.0)
[2022-05-15 15:17] LABS: Bacteria/HPF Rare-Few HPF (None Seen); RBC/HPF 0-3 HPF (0-3); Squamous Epithelial None Seen HPF (0-3); WBC/HPF None Seen HPF (0-3)
[2022-05-15 15:18] LABS: Mucous/LPF 1+ LPF (<2+)
[2022-05-15] MEDS ORDERED: Oseltamivir 75 MG CAP ONE (16:34)
[2022-05-15 17:34] VITALS: BMI 27.1
[2022-05-15] MEDS: Sodium Chloride 0.9% 1,000 ML IV SCH (18:04)
[2022-05-15] MEDS ORDERED: Acetaminophen 325 MG TAB PO PRN (18:15)
[2022-05-15] MEDS ORDERED: Ondansetron PF 4 MG/2 ML Vial IVP PRN (18:15)
[2022-05-15] MEDS ORDERED: Ondansetron ODT 4 MG TAB SL PRN (18:15)
[2022-05-15] MEDS: Calcium Carbonate 600 MG + Vit D TAB PO SCH (20:51)
[2022-05-15] MEDS: Atorvastatin Calcium 10 MG TAB PO SCH (20:52)
[2022-05-15] MEDS: Apixaban 2.5 MG TAB PO SCH (20:52)
[2022-05-15] MEDS: rOPINIRole HCl 2 MG TAB PO SCH (20:52)
[2022-05-15] MEDS ORDERED: Oseltamivir 75 MG CAP PO SCH (21:00)
[2022-05-16] MEDS: Sodium Chloride 0.9% 1,000 ML IV SCH (04:07)
[2022-05-16] MEDS ORDERED: Sodium Chloride 0.9% 1,000 ML IV SCH (07:30)
[2022-05-16] MEDS ORDERED: FLU VACC QS2022-23(65YR UP)/PF 240 MCG/0.7 ML SYRINGE IM ONE (09:00)
[2022-05-16] MEDS: Carvedilol 25 MG TAB PO SCH ×2 (09:54→17:22)
[2022-05-16] MEDS: Furosemide 20 MG TAB PO SCH (09:55)
[2022-05-16] MEDS: Oseltamivir 75 MG CAP PO SCH ×2 (09:55→20:37)
[2022-05-16] MEDS: Apixaban 2.5 MG TAB PO SCH ×2 (09:55→20:37)
[2022-05-16] MEDS: Calcium Carbonate 600 MG + Vit D TAB PO SCH ×2 (09:55→20:37)
[2022-05-16] MEDS: Cholecalciferol (Vitamin D3) 5,000 UNITS CAPSULE PO SCH (09:56)
[2022-05-16] MEDS: Aspirin Chewable 81 MG TAB PO SCH (09:56)
[2022-05-16] MEDS: Amlodipine 5 MG TAB PO SCH (09:58)
[2022-05-16] MEDS: Lisinopril 20 MG TAB PO SCH (09:59)
[2022-05-16] MEDS ORDERED: Ondansetron ODT 4 MG TAB SL PRN (10:32)
[2022-05-16] MEDS ORDERED: Acetaminophen 325 MG TAB PO PRN (10:32)
[2022-05-16] MEDS: Atorvastatin Calcium 10 MG TAB PO SCH (20:37)
[2022-05-16] MEDS: rOPINIRole HCl 2 MG TAB PO SCH (20:37)
[2022-05-17] MEDS: Carvedilol 25 MG TAB PO SCH ×2 (08:52→17:16)
[2022-05-17] MEDS: Lisinopril 20 MG TAB PO SCH (08:53)
[2022-05-17] MEDS: Aspirin Chewable 81 MG TAB PO SCH (08:53)
[2022-05-17] MEDS: Calcium Carbonate 600 MG + Vit D TAB PO SCH (08:53)
[2022-05-17] MEDS: Furosemide 20 MG TAB PO SCH (08:53)
[2022-05-17] MEDS: Oseltamivir 75 MG CAP PO SCH (08:53)
[2022-05-17] MEDS: Cholecalciferol (Vitamin D3) 5,000 UNITS CAPSULE PO SCH (08:54)
[2022-05-17] MEDS: Apixaban 2.5 MG TAB PO SCH (08:54)
[2022-05-17] MEDS: Amlodipine 5 MG TAB PO SCH (08:54)
[2022-05-17 17:57] VITALS: BP 132/82; TEMP 97.4
== END 2022-05-17 18:35 | disposition home or self-care (01) ==
LOC: BURERS 13:33 → BURMED 16:10
PROVIDERS: ADMIT Family Medicine; ATTEND Family Medicine
DX: E86.0 Dehydration (principal); J10.1 Influenza due to other identified influenza virus with other respiratory manifestations; R53.1 Weakness; I11.0 Hypertensive heart disease with heart failure; I50.32 Chronic diastolic (congestive) heart failure; I48.91 Unspecified atrial fibrillation; E78.00 Pure hypercholesterolemia, unspecified; M19.90 Unspecified osteoarthritis, unspecified site; M85.80 Other specified disorders of bone density and structure, unspecified site; E11.9 Type 2 diabetes mellitus without complications; M81.0 Age-related osteoporosis without current pathological fracture; Z79.01 Long term (current) use of anticoagulants; Z79.82 Long term (current) use of aspirin; Z79.899 Other long term (current) drug therapy; Z95.0 Presence of cardiac pacemaker
CPT/HCPCS: 36416; 51701; 71045; 80053; 81003; 81015; 83605; 83690; 84484; 85025; 87804; 93005; 96360; G0378; J7050; J7620; Q0162

== ENCOUNTER 2022-09-19 22:41 | Emergency (ER) | payer MEDICARE ==
[2022-09-19 23:05] LABS: Anion Gap 13 mmol/L (10-20); BUN (Urea Nitrogen) 23 mg/dL (9.8-20.1); Calc. Creatinine Clearance 0 mL/min (70-130); Calcium 9.2 mg/dL (7.8-10.44); Carbon Dioxide 22 mmol/L (23-31); Chloride 107 mmol/L (98-107); Estimated GFR 51; Glucose 154 mg/dL (83-110); Potassium 4.2 mmol/L (3.5-5.1); Sodium 138 mmol/L (136-145)
== END 2022-09-19 23:25 ==
LOC: BURERS 22:41
DX: Z71.1 Person with feared health complaint in whom no diagnosis is made (principal); E11.9 Type 2 diabetes mellitus without complications; E78.00 Pure hypercholesterolemia, unspecified; I10 Essential (primary) hypertension; M81.0 Age-related osteoporosis without current pathological fracture; Z86.73 Personal history of transient ischemic attack (TIA), and cerebral infarction without residual deficits; Z79.899 Other long term (current) drug therapy
CPT/HCPCS: 80048; 99283